=== PATIENT | female | born 1955 | race Caucasian/White ===

== ENCOUNTER 2016-06-11 09:38 | Inpatient (IN) | payer MEDICAID, OTHER ==
[2016-06-11] MEDS ORDERED: Sodium Chloride 0.9% 1,000 ML IV ONE ×2 (09:51→10:06)
[2016-06-11] MEDS ORDERED: HYDROmorphone 1 MG/ML Syringe IM ONE (09:53)
[2016-06-11] MEDS ORDERED: Sodium Chloride 0.9% 2.5 ML Syringe FLUSH PRN ×2 (10:06)
[2016-06-11] MEDS ORDERED: Sodium Chloride 0.9% 10 ML Syringe FLUSH PRN ×2 (10:06)
--- NOTE | 2016-06-11 10:12 | EDM.PDOC ---
ED HPI Trauma - General Chief Complaint: Lower Extremity Injury/Pain Stated Complaint: AMBULANCE Source: Reports: Patient, EMS History Limitations: Reports: No limitations - History of Present Illness INITIAL COMMENTS - FREE TEXT/NARRATIVE: HISTORY AND PHYSICAL: History of present illness: [60-year-old female with no prior bone or bleeding problems no anticoagulants now status post fall on right hip. Patient went out to smoke a cigarette and slipped on the ice she injured her right hip. Patient was unable to stand up or bear weight she had her cell phone so she called her people and EMS arrived and transported her to the hospital. She denies other complaints or injury. No headache neck pain. Denies spinal pain. Patient has not been drinking today and no drug use. Patient was outside for at least a half an hour waiting for EMS. Review of systems: As per history of present illness and below otherwise all systems reviewed and negative. Past medical history: As per history of present illness and as reviewed below otherwise noncontributory. Surgical history: As per history of present illness and as reviewed below otherwise noncontributory. Social history: No reported history of drug or alcohol abuse. Family history: As per history of present illness and as reviewed below otherwise noncontributory. Physical exam: HEENT: Atraumatic, normocephalic, pupils reactive, negative for conjunctival pallor or scleral icterus, mucous membranes moist, throat clear, neck supple, nontender, trachea midline. Normal painless range of motion of C-spine no midline tenderness. Lungs: Clear to auscultation, breath sounds equal bilaterally, chest nontender. Heart: S1S2, regular, negative for clicks, rubs, or JVD. Abdomen: Soft, nondistended, nontender. Negative for masses or hepatosplenomegaly. Negative for costovertebral tenderness. Pelvis: Stable nontender. Genitourinary: Deferred. Rectal: Deferred. Extremities: Extremities normal except right hip bony tenderness and swelling. Stable pelvis. Mild proximal thigh swelling with soft compartments. Normal popliteal pulse and DP/PT. Distal extremity atraumatic Nonfocal neurologic exam Diagnostics: [] Therapeutics: [] Impression: [] Plan: [] Definitive disposition and diagnosis as appropriate pending reevaluation and review of above. Allergies/ADRs: Allergies No Known Allergies Allergy (Verified 06/11/16 09:38) Home Medications: Ambulatory Orders . [No Known Home Meds] 02/22/14 [Confirmed 06/11/16] Past Medical History - Past Health History Medical/Surgical History: Denies Medical/Surgical History - Past Surgical History Musculoskeletal Surgical History: Reports: Other (see below) Other Musculoskeletal Surgeries/Procedures:: right elbow surgery Social & Family History - Tobacco Use Smoking Status *Q: Current Every Day Smoker Years of Tobacco use: 35 Packs/Tins Daily: 0.5 - Alcohol Use Days Per Week of Alcohol Use: 0 - Recreational Drug Use Recreational Drug Use: No Review of Systems - Review of Systems Review Of Systems: See Below (Per history of present illness) Trauma Exam - Physical Exam Exam: See Below (Per history of present illness) Course - Vital Signs Text/Narrative:: Signs and symptoms consistent with right hip fracture status post slip and fall prior to arrival. No evidence of clinical compartment syndrome. Neurovascularly intact distally. Analgesia administered with effective pain control. Exam otherwise atraumatic. No head injury or neck pain. Patient does not take anticoagulants. X-ray confirmed right intertrochanteric comminuted hip fracture interpreted by me report reviewed pelvis x-ray reflecting right hip fracture but no pelvic fracture chest x-ray interpreted by me and hyperinflation chronic changes no acute disease. Case discussed with Dr. Katelynn Singh orthopedist onsite case manager who is aware of history and findings and accepts patient for consultation and surgical treatment as needed. Case been discussed with Dr. Lopez hospitalist onsite case manager is aware of history and findings and will admit patient to his service. Last Recorded V/S: Last Vital Signs Temp 36.7 C 06/11/16 10:40 Pulse 70 06/11/16 10:40 Resp 16 06/11/16 10:40 BP 129/74 06/11/16 10:40 Pulse Ox 98 06/11/16 10:40 - Orders/Labs/Meds Orders: Active Orders 24 hr Category Date Time Status Admission Status [Patient Status] [ADT] Stat ADT 06/11/16 10:49 Ordered EKG Documentation Completion [RC] STAT Care 06/11/16 10:06 Active Peripheral IV Care [RC] . DIRECTED Care 06/11/16 10:06 Active COMPREHENSIVE METABOLIC PN,CMP [CHEM] Stat Lab 06/11/16 10:33 Received INR,PT,PROTHROMBIN TIME [COAG] Stat Lab 06/11/16 10:33 Received Sodium Chloride 0.9% [Saline Flush] Med 06/11/16 10:06 Active 10 ml FLUSH ASDIRECTED PRN Sodium Chloride 0.9% [Saline Flush] Med 06/11/16 10:06 Active 10 ml FLUSH ASDIRECTED PRN Sodium Chloride 0.9% [Saline Flush] Med 06/11/16 10:06 Active 2.5 ml FLUSH ASDIRECTED PRN Sodium Chloride 0.9% [Saline Flush] Med 06/11/16 10:06 Active 2.5 ml FLUSH ASDIRECTED PRN Peripheral IV Insertion Adult [OM.PC] Stat Oth 06/11/16 10:06 Ordered Medication Orders Sodium Chloride (Saline Flush) 10 ml FLUSH ASDIRECTED PRN PRN Reason: Keep Vein Open Last Admin: 06/11/16 10:21 Dose: 10 ml Sodium Chloride (Saline Flush) 2.5 ml FLUSH ASDIRECTED PRN PRN Reason: Keep Vein Open Last Admin: 06/11/16 10:21 Dose: 2.5 ml Sodium Chloride (Saline Flush) 10 ml FLUSH ASDIRECTED PRN PRN Reason: Keep Vein Open Last Admin: 06/11/16 10:21 Dose: 10 ml Sodium Chloride (Saline Flush) 2.5 ml FLUSH ASDIRECTED PRN PRN Reason: Keep Vein Open Last Admin: 06/11/16 10:21 Dose: 2.5 ml Labs: Laboratory Tests 06/11/16 06/11/16 Range/Units 10:33 10:33 WBC 13.30 H (4.0-11.0) K/uL RBC 4.29 L (4.30-5.90) M/uL Hgb 13.5 (12.0-16.0) g/dL Hct 41.4 (36.0-46.0) % MCV 96.5 (80.0-98.0) fL MCH 31.5 (27.0-32.0) pg MCHC 32.6 (31.0-37.0) g/dL RDW Std Deviation 45.4 (28.0-62.0) fl RDW Coeff of Amelia 13 (11.0-15.0) % Plt Count 236 (150-400) K/uL MPV 9.80 (7.40-12.00) fL Neut % (Auto) 87.9 H (48.0-80.0) % Lymph % (Auto) 9.5 L (16.0-40.0) % [place] % (Auto) 2.3 (0.0-15.0) % Eos % (Auto) 0.1 (0.0-7.0) % Baso % (Auto) 0.2 (0.0-1.5) % Neut # 11.7 H (1.4-5.7) K/uL Lymph # 1.3 (0.6-2.4) K/uL [place] # 0.3 (0.0-0.8) K/uL Eos # 0.0 (0.0-0.7) K/uL Baso # 0.0 (0.0-0.1) K/uL Nucleated RBC % 0.0 /100WBC Nucleated RBCs # 0 K/uL APTT 27.5 (18.6-31.3) SEC Meds: Medications Generic Name Dose Route Start Last Admin Trade Name Freq PRN Reason Stop Dose Admin Sodium Chloride 10 ml 06/11/16 10:06 06/11/16 10:21 Saline Flush FLUSH 10 ml ASDIRECTED PRN Administration Keep Vein Open Sodium Chloride 2.5 ml 06/11/16 10:06 06/11/16 10:21 Saline Flush FLUSH 2.5 ml ASDIRECTED PRN Administration Keep Vein Open Sodium Chloride 10 ml 06/11/16 10:06 06/11/16 10:21 Saline Flush FLUSH 10 ml ASDIRECTED PRN Administration Keep Vein Open Sodium Chloride 2.5 ml 06/11/16 10:06 06/11/16 10:21 Saline Flush FLUSH 2.5 ml ASDIRECTED PRN Administration Keep Vein Open Discontinued Medications Generic Name Dose Route Start Last Admin Trade Name Freq PRN Reason Stop Dose Admin Hydromorphone HCl 0.5 mg 06/11/16 09:53 06/11/16 10:20 Dilaudid IM 06/11/16 09:54 0.5 mg ONETIME ONE Administration Hydromorphone HCl 0.5 mg 06/11/16 11:13 Dilaudid IVPUSH 06/11/16 11:14 ONETIME ONE Sodium Chloride 1,000 mls @ 999 mls/hr 06/11/16 09:51 06/11/16 10:21 Normal Saline IV 06/11/16 10:51 999 mls/hr STAT ONE Administration Sodium Chloride 1,000 mls @ 999 mls/hr 06/11/16 10:06 Normal Saline IV 06/11/16 11:06 .Bolus ONE Departure - Departure Time of Disposition: 12:05 Disposition: Admitted As Inpatient 67 Condition: good, fair Clinical Impression: Intertrochanteric fracture, hip - My Orders Last 24 Hours: My Active Orders 06/11/16 10:06 EKG Documentation Completion [RC] STAT Peripheral IV Care [RC] . DIRECTED Sodium Chloride 0.9% [Saline Flush] 10 ml FLUSH ASDIRECTED PRN Sodium Chloride 0.9% [Saline Flush] 10 ml FLUSH ASDIRECTED PRN Sodium Chloride 0.9% [Saline Flush] 2.5 ml FLUSH ASDIRECTED PRN Sodium Chloride 0.9% [Saline Flush] 2.5 ml FLUSH ASDIRECTED PRN Peripheral IV Insertion Adult [OM.PC] Stat 06/11/16 10:33 COMPREHENSIVE METABOLIC PN,CMP [CHEM] Stat INR,PT,PROTHROMBIN TIME [COAG] Stat 06/11/16 10:49 Admission Status [Patient Status] [ADT] Stat - Assessment/Plan Last 24 Hours: My Active Orders 06/11/16 10:06 EKG Documentation Completion [RC] STAT Peripheral IV Care [RC] . DIRECTED Sodium Chloride 0.9% [Saline Flush] 10 ml FLUSH ASDIRECTED PRN Sodium Chloride 0.9% [Saline Flush] 10 ml FLUSH ASDIRECTED PRN Sodium Chloride 0.9% [Saline Flush] 2.5 ml FLUSH ASDIRECTED PRN Sodium Chloride 0.9% [Saline Flush] 2.5 ml FLUSH ASDIRECTED PRN Peripheral IV Insertion Adult [OM.PC] Stat 06/11/16 10:33 COMPREHENSIVE METABOLIC PN,CMP [CHEM] Stat INR,PT,PROTHROMBIN TIME [COAG] Stat 06/11/16 10:49 Admission Status [Patient Status] [ADT] Stat
--- NOTE | 2016-06-11 10:26 | CR ---
EXAMINATION: Right hip and pelvis HISTORY: Fall COMPARISON: None TECHNIQUE: AP pelvis and 2 views of the right hip FINDINGS: There is a comminuted angulated mildly displaced right intertrochanteric femur fracture. B one mineralization otherwise appears normal. The iliopectineal lines are intact. The SI joints are s ymmetric. The left hip appears preserved. IMPRESSION: Comminuted and angulated right intertrochanteric fracture.
--- NOTE | 2016-06-11 10:30 | CR ---
EXAMINATION: AP chest radiograph. HISTORY: Fall. FINDINGS: The trachea is midline. The cardiomediastinal silhouette is within normal limits. No pulmonary infil trates, effusions or pneumothorax. Osseous structures appear unremarkable. IMPRESSION: No acute cardiopulmonary process.
[2016-06-11] MEDS ORDERED: HYDROmorphone 2 MG/ML Syringe IVPUSH ONE (11:13)
[2016-06-11 11:16] LABS: CHLORIDE,CL 108 mmol/L (98-110); SODIUM,NA 141 mmol/L (136-146)
--- NOTE | 2016-06-11 11:19 | PCM.CONS ---
<Sharda Garrison - Last Filed: 06/11/16 11:28> H&P History of Present Illness - General Date of Service: 06/11/16 Admit Problem/Dx: Admission Diagnosis/Problem Admission Diagnosis/Problem Fracture of neck of femur, hip Source of Information: Patient History Limitations: Reports: No limitations - History of Present Illness Initial Comments - Free Text/Narative: Patient went out to smoke a cigarette this morning around 7:30 AM when she slipped on ice. She landed on her buttocks. She denies hitting her head or loss of consciousness. She immediately felt pain in her right hip. She was unable to get up. She had her phone on her and called her mother for help. EMS was called in [place]. Patient was brought to [place] for further care. Labs and images were obtained. Images revealed right hip fracture. She denies any other pain at this time. right hip Pain Score (Numeric/FACES): 6 - Related Data Allergies/Adverse Reactions: Allergies Allergy/AdvReac Type Severity Reaction Status Date / Time No Known Allergies Allergy Verified 06/11/16 09:38 Home Medications: Home Meds . [No Known Home Meds] 02/22/14 [History] Past Medical History - Past Health History Medical/Surgical History: Denies Medical/Surgical History - Past Surgical History Musculoskeletal Surgical History: Reports: Other (see below) Other Musculoskeletal Surgeries/Procedures:: right elbow surgery Social & Family History - Tobacco Use Smoking Status *Q: Current Every Day Smoker Years of Tobacco use: 35 Packs/Tins Daily: 0.5 - Alcohol Use Days Per Week of Alcohol Use: 0 - Recreational Drug Use Recreational Drug Use: No H&P Review of Systems - Review of Systems: Review Of Systems: See Below General: Reports: no symptoms HEENT: Reports: no symptoms Pulmonary: Reports: No Symptoms Cardiovascular: Reports: no symptoms Gastrointestinal: Reports: No symptoms Genitourinary: Reports: no symptoms Musculoskeletal: Reports: back pain Skin: Reports: no symptoms Psychiatric: Reports: no symptoms Neurological: Reports: No Symptoms Hematologic/Lymphatic: Reports: no symptoms Immunologic: Reports: no symptoms Exam - Exam Exam: See Below - Vital Signs Vital Signs: Last Vital Signs Temp 36.7 C 06/11/16 10:40 Pulse 70 06/11/16 10:40 Resp 16 06/11/16 10:40 BP 129/74 03/17/17 10:40 Pulse Ox 98 06/11/16 10:40 Weight: 55.792 kg - Exam General: alert, oriented HEENT: Conjunctiva clear, Hearing intact, Mucosa moist & pink, Nares patent, Normal nasal septum, Pupils equal, Pupils reactive Neck: supple, trachea midline Lungs: Clear to auscultation, Normal respiratory effort Cardiovascular: regular rate, regular rhythm Abdomen: normal bowel sounds, soft Extremities: normal pulses Skin: warm, dry, intact Neurological: cranial nerves intact Neuro Extensive - Mental Status: alert, oriented x3, normal mood/affect, normal cognition, memory intact Psychiatric: alert, normal affect, normal mood Physical Exam Comments:: Right lower extremity is external rotated and shortened compared to the LLE. Significant tenderness to palpation around the right hip and upper thigh. Significant effusion in right hip and upper thigh. Skin integrity intact. 2+ pulses in LE bilaterally. - Patient Data Lab Results last 24 hrs: Laboratory Results - last 24 hr 06/11/16 06/11/16 Range/Units 10:33 10:33 WBC 13.30 H (4.0-11.0) K/uL RBC 4.29 L (4.30-5.90) M/uL Hgb 13.5 (12.0-16.0) g/dL Hct 41.4 (36.0-46.0) % MCV 96.5 (80.0-98.0) fL MCH 31.5 (27.0-32.0) pg MCHC 32.6 (31.0-37.0) g/dL RDW Std Deviation 45.4 (28.0-62.0) fl RDW Coeff of Amelia 13 (11.0-15.0) % Plt Count 236 (150-400) K/uL MPV 9.80 (7.40-12.00) fL Neut % (Auto) 87.9 H (48.0-80.0) % Lymph % (Auto) 9.5 L (16.0-40.0) % [place] % (Auto) 2.3 (0.0-15.0) % Eos % (Auto) 0.1 (0.0-7.0) % Baso % (Auto) 0.2 (0.0-1.5) % Neut # 11.7 H (1.4-5.7) K/uL Lymph # 1.3 (0.6-2.4) K/uL [place] # 0.3 (0.0-0.8) K/uL Eos # 0.0 (0.0-0.7) K/uL Baso # 0.0 (0.0-0.1) K/uL Nucleated RBC % 0.0 /100WBC Nucleated RBCs # 0 K/uL APTT 27.5 (18.6-31.3) SEC Result Diagrams: 06/11/16 10:33 06/11/16 10:33 Consult PN Assessment/Plan Procedures: Procedures EMERGENCY DEPT VISIT (08/09/14) EMERGENCY DEPT VISIT (02/22/14) EMERGENCY DEPT VISIT (02/22/14) X-RAY EXAM OF HAND (08/09/14) X-RAY EXAM OF WRIST (08/09/14) Problem List Initiated/Reviewed/Updated: Yes Plan: 60 yro female s/p fall while smoking, now with a closed, comminuted right intertrochanteric femur fracture. Patient will need surgical intervention today. - keep NPO - IVF - PRN pain regimen - Type and cross - verify consent - admit Patient was seen and discussed with Dr. Staley. Sharda Garrison MD Surgery resident PGY 2 06/11/2016 11:33AM <Katelynn Staley R - Last Filed: 06/11/16 11:52> Exam - Vital Signs Vital Signs: Last Vital Signs Temp 98.0 F 06/11/16 10:40 Pulse 88 06/11/16 11:23 Resp 16 06/11/16 11:31 BP 126/76 06/11/16 11:23 Pulse Ox 96 06/11/16 11:31 - Patient Data Result Diagrams: 06/11/16 10:33 06/11/16 10:33 Consult PN Assessment/Plan Procedures: Procedures EMERGENCY DEPT VISIT (08/09/14) EMERGENCY DEPT VISIT (02/22/14) EMERGENCY DEPT VISIT (02/22/14) X-RAY EXAM OF HAND (08/09/14) X-RAY EXAM OF WRIST (08/09/14) (1) Intertrochanteric fracture of right femur SNOMED Code(s): 203119775 Code(s): S72.141A - DISPLACED INTERTROCHANTERIC FRACTURE OF RIGHT FEMUR, INIT Current Visit: Yes Qualifiers: Encounter type: initial encounter Fracture type: closed Qualified Code(s) : S72.141A - Displaced intertrochanteric fracture of right femur, initial encounter for closed fracture Problem List Initiated/Reviewed/Updated: Yes Plan: patient seen and examined. Agree with above note. Patient had fall earlier today. Denies other injuries. C/o R hip pain. XR show comminuted R IT hip fracture. Exam shows RLE to be shortened, externally rotated. Thigh swollen, compartments soft. Pain with gentle log rolling. No TTP in knee or low leg. AT/ EHL/gastroc 07/30. Sensation intact. DP 2+. At this time I am recommending that she undergo CR right hip with insertion of CM nail. Procedure and postoperative course discussed with patient and mother. Importance of smoking cessation emphasized. Risks of procedure discussed which include, but are not limited to, infection, n/v injury, nonunion, malunion, hardware irritation, blood clots, transfusion, need for further surgery, and anesthetic complications. Patient understands and agrees to proceed. Will be admitted by hospitalist for medical evaluation. Plan to proceed with surgery today, unless medical contraindication is found. haroon
--- NOTE | 2016-06-11 11:31 | PCM.PREANE ---
Preanesthetic Assessment - Anesthesia/Transfusion/Family Hx Anesthesia History: Prior Anesthesia Without Reaction Family History of Anesthesia Reaction: No - Review of Systems General: No Symptoms Pulmonary: No Symptoms Cardiovascular: No Symptoms Gastrointestinal: No symptoms Neurological: No Symptoms Other: Reports: None - Physical Assessment NPO Status Date: 06/10/16 NPO Status Time: 23:00 (coffee with cream at 0700 today) O2 Sat by Pulse Oximetry: 96 Respiratory Rate: 16 Vital Signs: Last Vital Signs Temp 36.7 C 06/11/16 10:40 Pulse 88 06/11/16 11:23 Resp 16 06/11/16 11:23 BP 126/76 06/11/16 11:23 Pulse Ox 96 06/11/16 11:23 Height: 1.63 m Weight: 55.792 kg ASA Class: 2 Mental Status: Alert & Oriented x3 Airway Class: Mallampati = 2 Dentition: Reports: Dentures ROM/Head Extension: Full Lungs: Clear to auscultation, Normal respiratory effort Cardiovascular: Regular Rate, Regular Rhythm - Lab Values: Laboratory Last Values WBC 13.30 K/uL (4.0-11.0) H 06/11/16 10:33 RBC 4.29 M/uL (4.30-5.90) L 06/11/16 10:33 Hgb 13.5 g/dL (12.0-16.0) 06/11/16 10:33 Hct 41.4 % (36.0-46.0) 06/11/16 10:33 MCV 96.5 fL (80.0-98.0) 06/11/16 10:33 MCH 31.5 pg (27.0-32.0) 06/11/16 10:33 MCHC 32.6 g/dL (31.0-37.0) 06/11/16 10:33 RDW Std Deviation 45.4 fl (28.0-62.0) 06/11/16 10:33 RDW Coeff of Amelia 13 % (11.0-15.0) 06/11/16 10:33 Plt Count 236 K/uL (150-400) 06/11/16 10:33 MPV 9.80 fL (7.40-12.00) 06/11/16 10:33 Neut % (Auto) 87.9 % (48.0-80.0) H 06/11/16 10:33 Lymph % (Auto) 9.5 % (16.0-40.0) L 06/11/16 10:33 [place] % (Auto) 2.3 % (0.0-15.0) 06/11/16 10:33 Eos % (Auto) 0.1 % (0.0-7.0) 06/11/16 10:33 Baso % (Auto) 0.2 % (0.0-1.5) 06/11/16 10:33 Neut # 11.7 K/uL (1.4-5.7) H 06/11/16 10:33 Lymph # 1.3 K/uL (0.6-2.4) 06/11/16 10:33 [place] # 0.3 K/uL (0.0-0.8) 06/11/16 10:33 Eos # 0.0 K/uL (0.0-0.7) 06/11/16 10:33 Baso # 0.0 K/uL (0.0-0.1) 06/11/16 10:33 Nucleated RBC % 0.0 /100WBC 06/11/16 10:33 Nucleated RBCs # 0 K/uL 06/11/16 10:33 INR 1.04 (0.86-1.11) 06/11/16 10:33 APTT 27.5 SEC (18.6-31.3) 06/11/16 10:33 Sodium 141 mmol/L (136-146) 06/11/16 10:33 Potassium 4.3 mmol/L (3.5-5.1) 06/11/16 10:33 Chloride 108 mmol/L (98-110) 06/11/16 10:33 Carbon Dioxide 26 mmol/L (21-31) 06/11/16 10:33 BUN 15 mg/dL (6.0-23.0) 06/11/16 10:33 Creatinine 0.8 mg/dL (0.6-1.5) 06/11/16 10:33 Est Cr Clr Drug Dosing 65.38 mL/min 06/11/16 10:33 Estimated GFR (MDRD) > 60.0 ml/min 06/11/16 10:33 Glucose 117 mg/dL (60-110) H 06/11/16 10:33 Calcium 8.8 mg/dL (8.8-10.8) 06/11/16 10:33 Total Bilirubin 0.4 mg/dL (0.1-1.5) 06/11/16 10:33 AST 18 IU/L (5-40) 06/11/16 10:33 ALT 13 IU/L (8-54) 06/11/16 10:33 Alkaline Phosphatase 62 (40-150) 06/11/16 10:33 Total Protein 6.3 g/dL (6.0-8.0) 06/11/16 10:33 Albumin 4.1 g/dL (3.5-5.0) 06/11/16 10:33 Globulin 2.2 g/dL (2.0-3.5) 06/11/16 10:33 Albumin/Globulin Ratio 1.9 (1.3-2.8) 06/11/16 10:33 - Allergies Allergies/Adverse Reactions: Allergies Allergy/AdvReac Type Severity Reaction Status Date / Time No Known Allergies Allergy Verified 06/11/16 09:38 - Blood Blood Available: No - Anesthesia Plan Pre-Op Medication Ordered: None - Acknowledgements Anesthesia Type Planned: Spinal Pt an Appropriate Candidate for the Planned Anesthesia: Yes Alternatives and Risks of Anesthesia Discussed w Pt/Guardian: Yes Pt/Guardian Understands and Agrees with Anesthesia Plan: Yes PreAnesthesia Questionnaire - Past Health History Medical/Surgical History: Denies Medical/Surgical History Cardiovascular History: Reports: None Respiratory History: Reports: Other (see below) (smoker) Musculoskeletal History: Reports: Fracture - Past Surgical History Musculoskeletal Surgical History: Reports: Other (see below) Other Musculoskeletal Surgeries/Procedures:: right elbow surgery - SUBSTANCE USE Smoking Status *Q: Current Every Day Smoker Tobacco Use Within Last Twelve Months: Cigarettes Days Per Week of Alcohol Use: 0 Recreational Drug Use History: No - HOME MEDS Home Medications: Home Meds . [No Known Home Meds] 02/22/14 [History] - CURRENT (IN HOUSE) MEDS Current Meds: Current Medications Sodium Chloride (Saline Flush) 10 ml FLUSH ASDIRECTED PRN PRN Reason: Keep Vein Open Last Admin: 06/11/16 10:21 Dose: 10 ml Sodium Chloride (Saline Flush) 2.5 ml FLUSH ASDIRECTED PRN PRN Reason: Keep Vein Open Last Admin: 06/11/16 10:21 Dose: 2.5 ml Sodium Chloride (Saline Flush) 10 ml FLUSH ASDIRECTED PRN PRN Reason: Keep Vein Open Last Admin: 06/11/16 10:21 Dose: 10 ml Sodium Chloride (Saline Flush) 2.5 ml FLUSH ASDIRECTED PRN PRN Reason: Keep Vein Open Last Admin: 06/11/16 10:21 Dose: 2.5 ml Discontinued Medications Hydromorphone HCl (Dilaudid) 0.5 mg IM ONETIME ONE Stop: 06/11/16 09:54 Last Admin: 06/11/16 10:20 Dose: 0.5 mg Hydromorphone HCl (Dilaudid) 0.5 mg IVPUSH ONETIME ONE Stop: 06/11/16 11:14 Last Admin: 06/11/16 11:20 Dose: 0.5 mg Sodium Chloride (Normal Saline) 1,000 mls @ 999 mls/hr IV STAT ONE Stop: 06/11/16 10:51 Last Admin: 06/11/16 10:21 Dose: 999 mls/hr Sodium Chloride (Normal Saline) 1,000 mls @ 999 mls/hr IV .Bolus ONE Stop: 06/11/16 11:06 Preanesthetic Assessment - PHYSICAL ASSESSMENT O2 Sat by Pulse Oximetry: 96 RR: 16 Vital Signs: Last Vital Signs Temp 36.7 C 06/11/16 10:40 Pulse 88 06/11/16 11:23 Resp 16 06/11/16 11:23 BP 126/76 06/11/16 11:23 Pulse Ox 96 06/11/16 11:23 Height: 1.63 m Weight: 55.792 kg - LAB Values: Laboratory Last Values WBC 13.30 K/uL (4.0-11.0) H 06/11/16 10:33 RBC 4.29 M/uL (4.30-5.90) L 06/11/16 10:33 Hgb 13.5 g/dL (12.0-16.0) 06/11/16 10:33 Hct 41.4 % (36.0-46.0) 06/11/16 10:33 MCV 96.5 fL (80.0-98.0) 06/11/16 10:33 MCH 31.5 pg (27.0-32.0) 06/11/16 10:33 MCHC 32.6 g/dL (31.0-37.0) 06/11/16 10:33 RDW Std Deviation 45.4 fl (28.0-62.0) 06/11/16 10:33 RDW Coeff of [place]elia 13 % (11.0-15.0) 06/11/16 10:33 Plt Count 236 K/uL (150-400) 06/11/16 10:33 MPV 9.80 fL (7.40-12.00) 06/11/16 10:33 Neut % (Auto) 87.9 % (48.0-80.0) H 06/11/16 10:33 Lymph % (Auto) 9.5 % (16.0-40.0) L 06/11/16 10:33 [place] % (Auto) 2.3 % (0.0-15.0) 06/11/16 10:33 Eos % (Auto) 0.1 % (0.0-7.0) 06/11/16 10:33 Baso % (Auto) 0.2 % (0.0-1.5) 06/11/16 10:33 Neut # 11.7 K/uL (1.4-5.7) H 06/11/16 10:33 Lymph # 1.3 K/uL (0.6-2.4) 06/11/16 10:33 [place] # 0.3 K/uL (0.0-0.8) 06/11/16 10:33 Eos # 0.0 K/uL (0.0-0.7) 06/11/16 10:33 Baso # 0.0 K/uL (0.0-0.1) 06/11/16 10:33 Nucleated RBC % 0.0 /100WBC 06/11/16 10:33 Nucleated RBCs # 0 K/uL 06/11/16 10:33 INR 1.04 (0.86-1.11) 06/11/16 10:33 APTT 27.5 SEC (18.6-31.3) 06/11/16 10:33 Sodium 141 mmol/L (136-146) 06/11/16 10:33 Potassium 4.3 mmol/L (3.5-5.1) 06/11/16 10:33 Chloride 108 mmol/L (98-110) 06/11/16 10:33 Carbon Dioxide 26 mmol/L (21-31) 06/11/16 10:33 BUN 15 mg/dL (6.0-23.0) 06/11/16 10:33 Creatinine 0.8 mg/dL (0.6-1.5) 06/11/16 10:33 Est Cr Clr Drug Dosing 65.38 mL/min 06/11/16 10:33 Estimated GFR (MDRD) > 60.0 ml/min 06/11/16 10:33 Glucose 117 mg/dL (60-110) H 06/11/16 10:33 Calcium 8.8 mg/dL (8.8-10.8) 06/11/16 10:33 Total Bilirubin 0.4 mg/dL (0.1-1.5) 06/11/16 10:33 AST 18 IU/L (5-40) 06/11/16 10:33 ALT 13 IU/L (8-54) 06/11/16 10:33 Alkaline Phosphatase 62 (40-150) 06/11/16 10:33 Total Protein 6.3 g/dL (6.0-8.0) 06/11/16 10:33 Albumin 4.1 g/dL (3.5-5.0) 06/11/16 10:33 Globulin 2.2 g/dL (2.0-3.5) 06/11/16 10:33 Albumin/Globulin Ratio 1.9 (1.3-2.8) 06/11/16 10:33 - ALLERGIES Allergies/Adverse Reactions: Allergies Allergy/AdvReac Type Severity Reaction Status Date / Time No Known Allergies Allergy Verified 06/11/16 09:38
[2016-06-11] MEDS ORDERED: Ondansetron 4 MG/2 ML SDV IV PRN (11:53)
[2016-06-11] MEDS: Lactated Ringers 1,000 ML IV SCH (12:16)
--- NOTE | 2016-06-11 12:40 | PCM.HP ---
H&P History of Present Illness - General Date of Service: 06/11/16 Admit Problem/Dx: Admission Diagnosis/Problem Admission Diagnosis/Problem Fracture of neck of femur, hip Source of Information: Patient History Limitations: Reports: No limitations - History of Present Illness Initial Comments - Free Text/Narative: This 60 year old female with pmh of 29 years of cigarette use presented to the ED today via EMS with complaints of R hip pain after a fall this morning. She reports she was walking outside to smoke, she slipped on ice landing on her butt , felt pain to R hip instantly and was unable to get up. She was able to call for help and EMS was called. She denies hitting her head or losing consciousness. She denies recent URI, no fevers, cough. No chest pain or palpitations and no SOB. She denies any abdominal pain, urinary symptoms or black or bloody stools. She has otherwise been in good health. She smokes approximately 1 ppd, denies alcohol use In the ED labwork was obtained, WBC slightly elevated 13,000, hgb 13.5, BMP WNL. EKG SR 70s, no ST segment changes. R hip xray revealed comminuted and angulated right intertrochanteric fracture. CXR negative for acute cardiopulmonary process. Dr. Staley, Orthopedics consulted in ED recommended admission. right hip Pain Score (Numeric/FACES): 8 - Related Data Allergies/Adverse Reactions: Allergies Allergy/AdvReac Type Severity Reaction Status Date / Time No Known Allergies Allergy Verified 06/11/16 09:38 Home Medications: Home Meds . [No Known Home Meds] 02/22/14 [History] Past Medical History - Past Health History Medical/Surgical History: Denies Medical/Surgical History Cardiovascular History: Reports: None. Denies: Afib, Blood clots/VTE/DVT, CAD, Heart Failure, Hypertension, [place] Respiratory History: Reports: Other (see below). Denies: COPD Other Respiratory History: smoker of 29 years Gastrointestinal History: Reports: None. Denies: GERD, GI bleed Musculoskeletal History: Reports: Fracture. Denies: Arthritis Neurological History: Denies: CVA, Migraines, TIA Endocrine/Metabolic History: Denies: Diabetes, type II, Hypothyroidism - Past Surgical History Musculoskeletal Surgical History: Reports: Other (see below) Other Musculoskeletal Surgeries/Procedures:: right elbow surgery Social & Family History - Family History Family Medical History: Noncontributory - Tobacco Use Smoking Status *Q: Current Every Day Smoker Years of Tobacco use: 35 Packs/Tins Daily: 0.5 Used Tobacco, but Quit: No Second Hand Smoke Exposure: Yes - Caffeine Use Caffeine Use: Reports: Coffee, Soda - Alcohol Use Days Per Week of Alcohol Use: 0 - Recreational Drug Use Recreational Drug Use: No H&P Review of Systems - Review of Systems: Review Of Systems: See Below General: Reports: no symptoms. Denies: fever, chills, malaise HEENT: Reports: no symptoms. Denies: ear pain, headaches, post nasal drip, sinus congestion, sore throat, visual changes Pulmonary: Reports: No Symptoms. Denies: Shortness of Breath, Wheezing, Cough Cardiovascular: Reports: no symptoms. Denies: chest pain, palpitations, edema Gastrointestinal: Reports: No symptoms. Denies: Abdominal pain, Black stool, Bloody stool, Diarrhea Genitourinary: Reports: no symptoms. Denies: dysuria, frequency, burning, urgency Musculoskeletal: Reports: leg pain (R hip after fall) Skin: Reports: no symptoms Psychiatric: Reports: no symptoms Neurological: Reports: No Symptoms Hematologic/Lymphatic: Reports: no symptoms Immunologic: Reports: no symptoms Exam - Exam Exam: See Below - Vital Signs Vital Signs: Last Vital Signs Temp 97.8 F 06/11/16 12:01 Pulse 77 06/11/16 12:01 Resp 18 06/11/16 12:01 BP 128/62 06/11/16 12:01 Pulse Ox 96 06/11/16 12:01 Weight: 57.5 kg - Exam Quality Assessment: DVT prophylaxis General: alert, oriented, cooperative HEENT: Conjunctiva clear, Hearing intact, Mucosa moist & pink, Nares patent, Posterior pharynx clear Neck: supple, trachea midline. No: JVD Lungs: Clear to auscultation, Normal respiratory effort Cardiovascular: regular rate, regular rhythm, normal S1, normal S2. No: systolic murmur Abdomen: normal bowel sounds, soft. No: organomegaly, rigidity, rebound, tenderness Extremities: normal pulses, other (R leg is externally rotated and shortened when compared to L, with noted swelling to R hip and upper thigh. Pul). No: calf tenderness, increased warmth Peripheral Pulses: 2+: posterior tibial (L), posterior tibial (R), dorsalis pedis (L), dorsalis pedis (R) Skin: warm, dry, intact Neuro Extensive - Mental Status: alert, oriented x3, normal mood/affect, normal cognition Neuro Extensive - Motor, Sensory, Reflexes: CN II-XII intact, normal reflexes Psychiatric: alert, normal affect, normal mood - Patient Data Result Diagrams: 06/11/16 10:33 06/11/16 10:33 EKG INTERPRETATION EKG Date: 06/11/16 Rhythm: NSR Rate (beats/min): 80 [place]: normal P-wave: present QRS: normal ST-T: normal QT: normal *Q Meaningful Use (ADM) - VTE *Q VTE Criteria *Q: - VTE Risk Assess *Q Each Risk Factor Represents 1 Point: Age 41 - 59 years Total Score 1 Point Risk Factors: 1 Each Risk Factor Represents 2 Points: None Total Score 2 Point Risk Factors: 0 Each Risk Factor Represents 3 Points: None Total Score 3 Point Risk Factors: 0 Each Risk Factor Represents 5 Points: Hip, Pelvis or Leg Fracture, Less than 1 month Total Score 5 Point Risk Factors: 5 Venous Thromboembolism Risk Factor Score *Q: 6 - Stroke *Q Stroke Criteria *Q: - AMI *Q AMI Criteria *Q: - Problem List (1) Intertrochanteric fracture of right femur SNOMED Code(s): 133632813 ICD Code: S72.141A - DISPLACED INTERTROCHANTERIC FRACTURE OF RIGHT FEMUR, INIT Status: Acute Current Visit: Yes Qualifiers: Encounter type: initial encounter Fracture type: closed Qualified Code(s) : S72.141A - Displaced intertrochanteric fracture of right femur, initial encounter for closed fracture (2) Smoker SNOMED Code(s): 06181701 ICD Code: F17.200 - NICOTINE DEPENDENCE, UNSPECIFIED, UNCOMPLICATED Status : Chronic Current Visit: Yes Problem List Initiated/Reviewed/Updated: Yes Orders Last 24hrs: Active Orders 24 hr Category Date Time Status Antiembolic Devices [RC] PER UNIT ROUTINE Care 06/11/16 11:55 Active Neurovascular Check [RC] Q4HR Care 06/11/16 11:55 Active Vital Signs [RC] Q4H Care 06/11/16 11:55 Active HYDROmorphone [Dilaudid] Med 06/11/16 11:53 Active 0.5 - 1 mg IVPUSH Q3H PRN Lactated Ringers [Ringers, Lactated] 1,000 ml Med 06/11/16 12:00 Active IV ASDIRECTED Ondansetron [Zofran] Med 06/11/16 11:53 Active 4 mg IV Q8HR PRN ceFAZolin [Ancef] 1 gm Med 06/11/16 13:00 Active Premix Bag 1 bag IV Q8H Antiembolic Hose [OM.PC] Routine Oth 06/11/16 11:55 Ordered Obtain Home Medication List [OM.PC] Routine Oth 06/11/16 11:55 Ordered Sequential Compression Device [OM.PC] Routine Oth 06/11/16 11:55 Ordered Medication Orders Hydromorphone HCl (Dilaudid) 0.5 - 1 mg IVPUSH Q3H PRN PRN Reason: Pain Lactated Ringer's (Ringers, Lactated) 1,000 mls @ 125 mls/hr IV ASDIRECTED ROGER Last Admin: 06/11/16 12:16 Dose: 125 mls/hr Cefazolin Sodium/Dextrose 1 gm (/ Premix) 50 mls @ 100 mls/hr IV Q8H ONE Stop: 06/11/16 13:29 Ondansetron HCl (Zofran) 4 mg IV Q8HR PRN PRN Reason: NAUSEA/VOMITING Sodium Chloride (Saline Flush) 10 ml FLUSH ASDIRECTED PRN PRN Reason: Keep Vein Open Last Admin: 06/11/16 10:21 Dose: 10 ml Sodium Chloride (Saline Flush) 2.5 ml FLUSH ASDIRECTED PRN PRN Reason: Keep Vein Open Last Admin: 06/11/16 10:21 Dose: 2.5 ml Sodium Chloride (Saline Flush) 10 ml FLUSH ASDIRECTED PRN PRN Reason: Keep Vein Open Last Admin: 06/11/16 10:21 Dose: 10 ml Sodium Chloride (Saline Flush) 2.5 ml FLUSH ASDIRECTED PRN PRN Reason: Keep Vein Open Last Admin: 06/11/16 10:21 Dose: 2.5 ml Assessment/Plan Comment:: This 60 year old female admitted with R hip fracture 1. R hip fracture: Dr Staley consulted, plan to go to OR this afternoon. Will start VTE prophylaxis when deemed safe by Ortho. Encourage IS to reduce pulmonary complications post-operatively. 2. Smoking: Smoking cessation encouraged. Encourage IS VTE: SCDs for now, will start when deemed appropriate by Ortho post-operatively. Dispo: 2-4 days Patient requested DNR status. Informed her during and 24 hours after surgery she will be placed as FULL CODE. She verbalizes understanding and agrees with this.
[2016-06-11] MEDS ORDERED: ceFAZolin 1 GM in Premix Bag 1 BAG IV ONE ×2 (13:00→16:00)
[2016-06-11] MEDS: HYDROmorphone 2 MG/ML Syringe IVPUSH PRN (13:32)
[2016-06-11] MEDS ORDERED: Propofol 200 MG/20 ML SDV ONE (13:35)
[2016-06-11] MEDS ORDERED: fentaNYL 100 MCG/2 ML SDV ONE ×2 (13:36→13:37)
[2016-06-11] MEDS ORDERED: Midazolam 1 MG/ML 2 ML SDV ONE (13:36)
[2016-06-11] MEDS ORDERED: Phenylephrine/Normal Saline 100 MCG/ML 10 ML Syringe ONE ×2 (15:00→15:14)
[2016-06-11] MEDS ORDERED: Phenylephrine 1% 10 MG/ML SDV ONE (15:14)
--- NOTE | 2016-06-11 16:42 | PCM.OPNOTE ---
- General Post-Op/Procedure Note Date of Surgery/Procedure: 06/11/16 Operative Procedure(s): closed reduction of right hip with insertion of cephalomedullary nail Anesthesia Technique: MAC, Spinal Primary Surgeon: Katelynn Staley Art Editor: Sharda Garrison Art Editor: Ruby Quach EBL in mLs: 100 Condition: Good
[2016-06-11] MEDS ORDERED: diphenhydrAMINE 25 MG Cap PO PRN (16:54)
[2016-06-11] MEDS ORDERED: Acetaminophen 500 MG Tab PO SCH (17:00)
--- NOTE | 2016-06-11 17:27 | PCM.POSTAN ---
POST ANESTHESIA ASSESSMENT - MENTAL STATUS Mental Status: alert, oriented - RESPIRATORY Respiratory Status: respiratory rate WNL, airway patent, O2 saturation stable, supplemental oxygen (o2 via nasal canula) - CARDIOVASCULAR CV Status: pulse rate WNL, blood pressure stable - GASTROINTESTINAL GI Status: no symptoms - PAIN Pain Score: 0 - POST OP HYDRATION Hydration Status: adequate & stable - OBSERVATIONS Free Text/Narrative:: can wiggle toes
[2016-06-11] MEDS: Acetaminophen/HYDROcodone 325-10 MG Tab PO PRN (20:48)
[2016-06-11] MEDS: ceFAZolin 1 GM in Premix Bag 1 BAG IV SCH (23:18)
[2016-06-12] MEDS: Lactated Ringers 1,000 ML IV SCH ×3 (01:08→17:52)
[2016-06-12] MEDS: Acetaminophen/HYDROcodone 325-10 MG Tab PO PRN ×4 (05:19→23:24)
[2016-06-12] MEDS: ceFAZolin 1 GM in Premix Bag 1 BAG IV SCH (06:02)
[2016-06-12 06:43] LABS: CHLORIDE,CL 107 mmol/L (98-110); SODIUM,NA 137 mmol/L (136-146)
[2016-06-12] MEDS: HYDROmorphone 2 MG/ML Syringe IVPUSH PRN (07:40)
--- NOTE | 2016-06-12 08:00 | PCM.SURGPN ---
- General Info Date of Service: 06/11/16 Date of Surgery/Procedure: 06/12/16 POD#: 1 Functional Status: Reports: pain controlled, tolerating diet, ambulating, urinating - Review of Systems General: Reports: No Symptoms Pulmonary: Reports: no symptoms Cardiovascular: Reports: No Symptoms Gastrointestinal: Reports: No symptoms Genitourinary: Reports: no symptoms Musculoskeletal: Reports: back pain, joint pain Neurological: Reports: No Symptoms Psychiatric: Reports: no symptoms - Patient Data Vitals - most recent: Last Vital Signs Temp 37.5 C 06/12/16 04:00 Pulse 92 06/12/16 04:00 Resp 18 06/12/16 04:00 BP 108/55 L 06/12/16 04:00 Pulse Ox 94 L 06/12/16 04:00 Weight - most recent: 57.5 kg I&O - last 24 hours: Intake & Output 06/11/16 06/12/16 06/12/16 22:59 06:59 14:59 Intake Total 1600 1200 Output Total 890 600 Balance 710 600 Lab Results last 24 hrs: Laboratory Results - last 24 hr 06/12/16 06/12/16 Range/Units 05:35 05:35 WBC 7.33 (4.0-11.0) K/uL RBC 3.09 L (4.30-5.90) M/uL Hgb 9.8 L (12.0-16.0) g/dL Hct 30.0 L (36.0-46.0) % MCV 97.1 (80.0-98.0) fL MCH 31.7 (27.0-32.0) pg MCHC 32.7 (31.0-37.0) g/dL RDW Std Deviation 45.6 (28.0-62.0) fl RDW Coeff of [place]elia 13 (11.0-15.0) % Plt Count 184 (150-400) K/uL MPV 9.80 (7.40-12.00) fL Neut % (Auto) 65.3 (48.0-80.0) % Lymph % (Auto) 25.6 (16.0-40.0) % [place] % (Auto) 8.6 (0.0-15.0) % Eos % (Auto) 0.4 (0.0-7.0) % Baso % (Auto) 0.1 (0.0-1.5) % Neut # 4.8 (1.4-5.7) K/uL Lymph # 1.9 (0.6-2.4) K/uL [place] # 0.6 (0.0-0.8) K/uL Eos # 0.0 (0.0-0.7) K/uL Baso # 0.0 (0.0-0.1) K/uL Nucleated RBC % 0.0 /100WBC Nucleated RBCs # 0 K/uL Sodium 137 (136-146) mmol/L Potassium 4.2 (3.5-5.1) mmol/L Chloride 107 (98-110) mmol/L Carbon Dioxide 25 (21-31) mmol/L BUN 9 (6.0-23.0) mg/dL Creatinine 0.7 (0.6-1.5) mg/dL Est Cr Clr Drug Dosing 75.27 mL/min Estimated GFR (MDRD) > 60.0 ml/min Glucose 91 (60-110) mg/dL Calcium 8.0 L (8.8-10.8) mg/dL Med Orders - Current: Current Medications Acetaminophen/Hydrocodone Bitart ([place] 325-10 Mg) 1 - 2 tab PO Q4H PRN PRN Reason: Pain Last Admin: 06/12/16 05:19 Dose: 1 tab Diphenhydramine HCl (Benadryl) 25 - 50 mg PO Q6H PRN PRN Reason: Itching Hydromorphone HCl (Dilaudid) 0.5 - 1 mg IVPUSH Q3H PRN PRN Reason: Pain Last Admin: 06/12/16 07:40 Dose: 1 mg Lactated Ringer's (Ringers, Lactated) 1,000 mls @ 125 mls/hr IV ASDIRECTED ROGER Last Admin: 06/12/16 01:08 Dose: 125 mls/hr Ondansetron HCl (Zofran) 4 mg IV Q8HR PRN PRN Reason: NAUSEA/VOMITING Rivaroxaban (Xarelto) 10 mg PO DAILY ROGER Sodium Chloride (Saline Flush) 2.5 ml FLUSH ASDIRECTED PRN PRN Reason: Keep Vein Open Last Admin: 06/11/16 10:21 Dose: 2.5 ml Discontinued Medications Acetaminophen (Tylenol Extra Strength) 1,000 mg PO Q6H [facility] Fentanyl (Sublimaze) Confirm Administered Dose 100 mcg .ROUTE .STK-MED ONE Stop: 06/11/16 13:37 Fentanyl (Sublimaze) Confirm Administered Dose 100 mcg .ROUTE .STK-MED ONE Stop: 06/11/16 13:38 Hydromorphone HCl (Dilaudid) 0.5 mg IM ONETIME ONE Stop: 06/11/16 09:54 Last Admin: 06/11/16 10:20 Dose: 0.5 mg Hydromorphone HCl (Dilaudid) 0.5 mg IVPUSH ONETIME ONE Stop: 06/11/16 11:14 Last Admin: 06/11/16 11:20 Dose: 0.5 mg Sodium Chloride (Normal Saline) 1,000 mls @ 999 mls/hr IV STAT ONE Stop: 06/11/16 10:51 Last Admin: 06/11/16 10:21 Dose: 999 mls/hr Sodium Chloride (Normal Saline) 1,000 mls @ 999 mls/hr IV .Bolus ONE Stop: 06/11/16 11:06 Last Admin: 06/11/16 11:12 Dose: 999 mls/hr Cefazolin Sodium/Dextrose 1 gm (/ Premix) 50 mls @ 100 mls/hr IV Q8H ONE Stop: 06/11/16 13:29 Last Admin: 06/11/16 13:35 Dose: Not Given Cefazolin Sodium/Dextrose 1 gm (/ Premix) 50 mls @ 100 mls/hr IV ONETIME ONE Stop: 06/11/16 16:29 Last Admin: 06/11/16 16:33 Dose: Not Given Cefazolin Sodium/Dextrose (Ancef) Confirm Administered Dose 50 mls @ as directed .ROUTE .STK-MED ONE Stop: 06/11/16 15:09 Cefazolin Sodium/Dextrose 1 gm (/ Premix) 50 mls @ 100 mls/hr IV Q8H ROGER Stop: 06/12/16 07:29 Last Admin: 06/12/16 06:02 Dose: 100 mls/hr Midazolam HCl (Versed 1 Mg/Ml) Confirm Administered Dose 2 mg .ROUTE .STK-MED ONE Stop: 06/11/16 13:37 Phenylephrine HCl (Phenylephrine In Ns 100 Mcg/Ml) Confirm Administered Dose 1 mg .ROUTE .STK-MED ONE Stop: 06/11/16 15:01 Phenylephrine HCl (Phenylephrine In Ns 100 Mcg/Ml) Confirm Administered Dose 1 mg .ROUTE .STK-MED ONE Stop: 06/11/16 15:15 Phenylephrine HCl (Frankie-Synephrine) Confirm Administered Dose 10 mg .ROUTE .STK- MED ONE Stop: 06/11/16 15:15 Propofol (Diprivan 20 Ml) Confirm Administered Dose 800 mg .ROUTE .STK-MED ONE Stop: 06/11/16 13:36 Sodium Chloride (Saline Flush) 10 ml FLUSH ASDIRECTED PRN PRN Reason: Keep Vein Open Last Admin: 06/11/16 10:21 Dose: 10 ml Sodium Chloride (Saline Flush) 2.5 ml FLUSH ASDIRECTED PRN PRN Reason: Keep Vein Open Last Admin: 06/11/16 10:21 Dose: 2.5 ml Sodium Chloride (Saline Flush) 10 ml FLUSH ASDIRECTED PRN PRN Reason: Keep Vein Open Last Admin: 06/11/16 10:21 Dose: 10 ml - Exam Wound/Incisions: dressing dry and intact General: alert, oriented HEENT: Pupils equal, Pupils reactive Lungs: Normal respiratory effort Cardiovascular: Regular Rate Neurological: no new focal deficit Psy/Mental Status: alert, normal affect, normal mood Physical Findings Comment:: RLE gastroc, EHL and anterior tibialis strength 5/5. Full ROM of right knee. Sensation intact distally. - Problem List Review Problem List Initiated/Reviewed/Updated: Yes - My Orders Last 24 Hours: Active Orders 24 hr Category Date Time Status Activity as Tolerated [RC] .Routine Care 06/11/16 16:50 Active Antiembolic Devices [RC] PER UNIT ROUTINE Care 06/11/16 11:55 Active Intake and Output [RC] ASDIRECTED Care 06/11/16 16:50 Active Neurovascular Check [RC] Q4HR Care 06/11/16 11:55 Active Notify Provider Consults [RC] ASDIRECTED Care 06/11/16 12:58 Active Notify Provider Vital Signs [RC] ASDIRECTED Care 06/11/16 16:50 Active Oxygen Therapy [RC] PRN Care 06/11/16 16:44 Inactive RT Incentive Spirometry [RC] ASDIRECTED Care 06/11/16 16:43 Active Up With Assistance [RC] ASDIRECTED Care 06/11/16 16:43 Active Vital Signs [RC] Q4H Care 06/11/16 16:44 Active Consult to Physician [CONS] Routine Cons 06/11/16 12:57 Active PT Evaluation and Treatment [CONS] Routine Cons 06/11/16 16:43 Active Regular Diet [DIET] Diet 06/11/16 Dinner Active Fluoro Up To 1Hr [CR] Routine Exams 06/11/16 19:13 Taken BMP [BASIC METABOLIC PANEL,BMP] [CHEM] DAILY Lab 06/13/16 05:00 Ordered CBC WITH AUTO DIFF [HEME] DAILY Lab 06/13/16 05:00 Ordered Acetaminophen/HYDROcodone [[place] 325-10 MG] Med 06/11/16 16:50 Active 1 - 2 tab PO Q4H PRN HYDROmorphone [Dilaudid] Med 06/11/16 11:53 Active 0.5 - 1 mg IVPUSH Q3H PRN Lactated Ringers [Ringers, Lactated] 1,000 ml Med 06/11/16 12:00 Active IV ASDIRECTED Ondansetron [Zofran] Med 06/11/16 11:53 Active 4 mg IV Q8HR PRN Rivaroxaban [Xarelto] Med 06/12/16 09:00 Active 10 mg PO DAILY diphenhydrAMINE [Benadryl] Med 06/11/16 16:54 Active 25 - 50 mg PO Q6H PRN Antiembolic Hose [OM.PC] Routine Oth 06/11/16 11:55 Ordered Ice Therapy [OM.PC] Routine Oth 06/12/16 07:54 Ordered Obtain Home Medication List [OM.PC] Routine Oth 06/11/16 11:55 Ordered Sequential Compression Device [OM.PC] Routine Oth 06/11/16 11:55 Ordered Resuscitation Status Routine Resus Stat 06/11/16 12:57 Ordered Medication Orders Acetaminophen/Hydrocodone Bitart ([place] 325-10 Mg) 1 - 2 tab PO Q4H PRN PRN Reason: Pain Last Admin: 06/12/16 05:19 Dose: 1 tab Admin: 06/11/16 20:48 Dose: 1 tab Diphenhydramine HCl (Benadryl) 25 - 50 mg PO Q6H PRN PRN Reason: Itching Hydromorphone HCl (Dilaudid) 0.5 - 1 mg IVPUSH Q3H PRN PRN Reason: Pain Last Admin: 06/12/16 07:40 Dose: 1 mg Admin: 06/11/16 13:32 Dose: 1 mg Lactated Ringer's (Ringers, Lactated) 1,000 mls @ 125 mls/hr IV ASDIRECTED ROGER Last Admin: 06/12/16 01:08 Dose: 125 mls/hr Infusion: 06/11/16 20:16 Dose: 125 mls/hr Admin: 06/11/16 12:16 Dose: 125 mls/hr Ondansetron HCl (Zofran) 4 mg IV Q8HR PRN PRN Reason: NAUSEA/VOMITING Rivaroxaban (Xarelto) 10 mg PO DAILY ROGER Sodium Chloride (Saline Flush) 2.5 ml FLUSH ASDIRECTED PRN PRN Reason: Keep Vein Open Last Admin: 06/11/16 10:21 Dose: 2.5 ml - Assessment Assessment (Free Text/Narrative):: Patient sitting up in bed with nurses this AM Does report some dizziness upon sitting Pain well controlled overnight VSS Hgb 9.8 UO 1490 mL - Plan Plan (Free Text/Narrative):: Continue pain management Continue PT Encourage PO fluid intake Start Xarelto 10mg PO daily for DVT prophylaxis
[2016-06-12] MEDS: Rivaroxaban 10 MG Tab PO SCH (08:02)
--- NOTE | 2016-06-12 08:02 | PCM.SN ---
- Free Text/Narrative Note: Pt seen and examined. Agree with ROWAN Quach note. Patient sitting at edge of bed. States she feels somewhat dizzy. This is her first time sitting up since surgery. Pain well controlled overnight. No other complaints. Dressing intact. No calf TTP. NVI. Will plan to mobilize today with PT--WBAT RLE. STart Xarelto for DVT prophylaxis. Continue pain management. Will continue to follow.
[2016-06-12] MEDS ORDERED: Rivaroxaban 10 MG Tab PO SCH (09:00)
--- NOTE | 2016-06-12 12:33 | PCM.PN ---
- Review of Systems Systems Review Comment:: reports leg pain - Patient Data Vitals - most recent: Last Vital Signs Temp 37.0 C 06/12/16 08:00 Pulse 84 06/12/16 08:00 Resp 12 06/12/16 08:00 BP 104/55 L 06/12/16 08:00 Pulse Ox 98 06/12/16 08:00 Weight - most recent: 57.5 kg I&O - last 24 hours: Intake & Output 06/11/16 06/12/16 06/12/16 22:59 06:59 14:59 Intake Total 1600 1200 Output Total 890 600 Balance 710 600 Lab Results last 24 hrs: Laboratory Results - last 24 hr 06/12/16 06/12/16 Range/Units 05:35 05:35 WBC 7.33 (4.0-11.0) K/uL RBC 3.09 L (4.30-5.90) M/uL Hgb 9.8 L (12.0-16.0) g/dL Hct 30.0 L (36.0-46.0) % MCV 97.1 (80.0-98.0) fL MCH 31.7 (27.0-32.0) pg MCHC 32.7 (31.0-37.0) g/dL RDW Std Deviation 45.6 (28.0-62.0) fl RDW Coeff of [place] 13 (11.0-15.0) % Plt Count 184 (150-400) K/uL MPV 9.80 (7.40-12.00) fL Neut % (Auto) 65.3 (48.0-80.0) % Lymph % (Auto) 25.6 (16.0-40.0) % [place] % (Auto) 8.6 (0.0-15.0) % Eos % (Auto) 0.4 (0.0-7.0) % Baso % (Auto) 0.1 (0.0-1.5) % Neut # 4.8 (1.4-5.7) K/uL Lymph # 1.9 (0.6-2.4) K/uL [place] # 0.6 (0.0-0.8) K/uL Eos # 0.0 (0.0-0.7) K/uL Baso # 0.0 (0.0-0.1) K/uL Nucleated RBC % 0.0 /100WBC Nucleated RBCs # 0 K/uL Sodium 137 (136-146) mmol/L Potassium 4.2 (3.5-5.1) mmol/L Chloride 107 (98-110) mmol/L Carbon Dioxide 25 (21-31) mmol/L BUN 9 (6.0-23.0) mg/dL Creatinine 0.7 (0.6-1.5) mg/dL Est Cr Clr Drug Dosing 75.27 mL/min Estimated GFR (MDRD) > 60.0 ml/min Glucose 91 (60-110) mg/dL Calcium 8.0 L (8.8-10.8) mg/dL Med Orders - Current: Current Medications Acetaminophen/Hydrocodone Bitart ([place] 325-10 Mg) 1 - 2 tab PO Q4H PRN PRN Reason: Pain Last Admin: 06/12/16 10:57 Dose: 2 tab Diphenhydramine HCl (Benadryl) 25 - 50 mg PO Q6H PRN PRN Reason: Itching Hydromorphone HCl (Dilaudid) 0.5 - 1 mg IVPUSH Q3H PRN PRN Reason: Pain Last Admin: 06/12/16 07:40 Dose: 1 mg Lactated Ringer's (Ringers, Lactated) 1,000 mls @ 125 mls/hr IV ASDIRECTED [facility] Last Admin: 06/12/16 09:48 Dose: 125 mls/hr Ondansetron HCl (Zofran) 4 mg IV Q8HR PRN PRN Reason: NAUSEA/VOMITING Last Admin: 06/12/16 08:16 Dose: 4 mg Rivaroxaban (Xarelto) 10 mg PO DAILY [facility] Last Admin: 06/12/16 08:02 Dose: 10 mg Sodium Chloride (Saline Flush) 2.5 ml FLUSH ASDIRECTED PRN PRN Reason: Keep Vein Open Last Admin: 06/11/16 10:21 Dose: 2.5 ml Discontinued Medications Acetaminophen (Tylenol Extra Strength) 1,000 mg PO Q6H [facility] Fentanyl (Sublimaze) Confirm Administered Dose 100 mcg .ROUTE .STK-MED ONE Stop: 06/11/16 13:37 Fentanyl (Sublimaze) Confirm Administered Dose 100 mcg .ROUTE .STK-MED ONE Stop: 06/11/16 13:38 Hydromorphone HCl (Dilaudid) 0.5 mg IM ONETIME ONE Stop: 06/11/16 09:54 Last Admin: 06/11/16 10:20 Dose: 0.5 mg Hydromorphone HCl (Dilaudid) 0.5 mg IVPUSH ONETIME ONE Stop: 06/11/16 11:14 Last Admin: 06/11/16 11:20 Dose: 0.5 mg Sodium Chloride (Normal Saline) 1,000 mls @ 999 mls/hr IV STAT ONE Stop: 06/11/16 10:51 Last Admin: 06/11/16 10:21 Dose: 999 mls/hr Sodium Chloride (Normal Saline) 1,000 mls @ 999 mls/hr IV .Bolus ONE Stop: 06/11/16 11:06 Last Admin: 06/11/16 11:12 Dose: 999 mls/hr Cefazolin Sodium/Dextrose 1 gm (/ Premix) 50 mls @ 100 mls/hr IV Q8H ONE Stop: 06/11/16 13:29 Last Admin: 06/11/16 13:35 Dose: Not Given Cefazolin Sodium/Dextrose 1 gm (/ Premix) 50 mls @ 100 mls/hr IV ONETIME ONE Stop: 06/11/16 16:29 Last Admin: 06/11/16 16:33 Dose: Not Given Cefazolin Sodium/Dextrose (Ancef) Confirm Administered Dose 50 mls @ as directed .ROUTE .STK-MED ONE Stop: 06/11/16 15:09 Cefazolin Sodium/Dextrose 1 gm (/ Premix) 50 mls @ 100 mls/hr IV Q8H [facility]OGER Stop: 06/12/16 07:29 Last Admin: 06/12/16 06:02 Dose: 100 mls/hr Midazolam HCl (Versed 1 Mg/Ml) Confirm Administered Dose 2 mg .ROUTE .STK-MED ONE Stop: 06/11/16 13:37 Phenylephrine HCl (Phenylephrine In Ns 100 Mcg/Ml) Confirm Administered Dose 1 mg .ROUTE .STK-MED ONE Stop: 06/11/16 15:01 Phenylephrine HCl (Phenylephrine In Ns 100 Mcg/Ml) Confirm Administered Dose 1 mg .ROUTE .STK-MED ONE Stop: 03/17/17 15:15 Phenylephrine HCl (Frankie-Synephrine) Confirm Administered Dose 10 mg .ROUTE .STK- MED ONE Stop: 06/11/16 15:15 Propofol (Diprivan 20 Ml) Confirm Administered Dose 800 mg .ROUTE .STK-MED ONE Stop: 06/11/16 13:36 Rivaroxaban (Xarelto) 10 mg PO DAILY [facility]OGER Sodium Chloride (Saline Flush) 10 ml FLUSH ASDIRECTED PRN PRN Reason: Keep Vein Open Last Admin: 06/11/16 10:21 Dose: 10 ml Sodium Chloride (Saline Flush) 2.5 ml FLUSH ASDIRECTED PRN PRN Reason: Keep Vein Open Last Admin: 06/11/16 10:21 Dose: 2.5 ml Sodium Chloride (Saline Flush) 10 ml FLUSH ASDIRECTED PRN PRN Reason: Keep Vein Open Last Admin: 06/11/16 10:21 Dose: 10 ml - Exam General: alert, oriented Lungs: Clear to auscultation, Normal respiratory effort Cardiovascular: Regular Rate, Regular Rhythm Abdomen: bowel sounds present, soft, no tenderness, no distension Extremities: no edema - Problem List Review Problem List Initiated/Reviewed/Updated: Yes - Plan Plan:: This 60 year old female admitted with R hip fracture R hip fracture: Dr Staley consulted, s/p ORIF yesterday, PT consulted VTE: Xarelto Dispo: 2-4 days Patient requested DNR status. Informed her during and 24 hours after surgery she will be placed as FULL CODE. She verbalizes understanding and agrees with this.
--- NOTE | 2016-06-12 13:24 | PCM48HPAN ---
Post Anesthesia Note - EVALUATION WITHIN 48HRS OF ANESTHETIC Vital Signs in Normal Range: Yes Patient Participated in Evaluation: Yes Respiratory Function Stable: Yes Airway Patent: Yes Cardiovascular Function Stable: Yes Hydration Status Stable: Yes Pain Control Satisfactory: Yes Nausea and Vomiting Control Satisfactory: Yes Mental Status Recovered: Yes
[2016-06-13] MEDS: Lactated Ringers 1,000 ML IV SCH ×3 (01:50→23:55)
[2016-06-13] MEDS: Acetaminophen/HYDROcodone 325-10 MG Tab PO PRN (06:55)
[2016-06-13 07:27] LABS: CHLORIDE,CL 106 mmol/L (98-110); SODIUM,NA 139 mmol/L (136-146)
[2016-06-13] MEDS ORDERED: Ketorolac 30 MG/ML SDV IVPUSH PRN (09:55)
[2016-06-13] MEDS: Rivaroxaban 10 MG Tab PO SCH (09:58)
[2016-06-13] MEDS: HYDROmorphone 2 MG/ML Syringe IVPUSH PRN (09:58)
--- NOTE | 2016-06-13 10:03 | PCM.SURGPN ---
- General Info Date of Service: 06/13/16 POD#: 2 - Review of Systems General: Reports: No Symptoms HEENT: Reports: no symptoms Pulmonary: Reports: no symptoms Cardiovascular: Reports: No Symptoms Gastrointestinal: Reports: No symptoms Genitourinary: Reports: no symptoms Systems Review Comment:: Patient c/o pain in hip. Received 2 [place] 10 earlier today which caused her to have some confusion. Was up with PT yesterday, but did minimal ambulation. Hgb 8.2 today with mild hypotension and dizziness when sitting up. 2U PRBC ordered. No other complaints. - Patient Data Vitals - most recent: Last Vital Signs Temp 98.9 F 06/13/16 09:48 Pulse 105 H 06/13/16 09:48 Resp 16 06/13/16 09:48 BP 120/58 L 06/13/16 09:48 Pulse Ox 92 L 06/13/16 08:00 Weight - most recent: 57.5 kg I&O - last 24 hours: Intake & Output 06/12/16 06/13/16 06/13/16 22:59 06:59 14:59 Intake Total 2385 2120 28 Output Total 350 850 Balance 2035 1270 28 Lab Results last 24 hrs: Laboratory Results - last 24 hr 06/13/16 06/13/16 Range/Units 06:45 06:45 WBC 8.90 (4.0-11.0) K/uL RBC 2.55 L (4.30-5.90) M/uL Hgb 8.2 L (12.0-16.0) g/dL Hct 24.8 L (36.0-46.0) % MCV 97.3 (80.0-98.0) fL MCH 32.2 H (27.0-32.0) pg MCHC 33.1 (31.0-37.0) g/dL RDW Std Deviation 45.5 (28.0-62.0) fl RDW Coeff of Amelia 13 (11.0-15.0) % Plt Count 168 (150-400) K/uL MPV 9.70 (7.40-12.00) fL Neut % (Auto) 62.3 (48.0-80.0) % Lymph % (Auto) 27.3 (16.0-40.0) % [place] % (Auto) 10.2 (0.0-15.0) % Eos % (Auto) 0.1 (0.0-7.0) % Baso % (Auto) 0.1 (0.0-1.5) % Neut # 5.5 (1.4-5.7) K/uL Lymph # 2.4 (0.6-2.4) K/uL [place] # 0.9 H (0.0-0.8) K/uL Eos # 0.0 (0.0-0.7) K/uL Baso # 0.0 (0.0-0.1) K/uL Nucleated RBC % 0.0 /100WBC Nucleated RBCs # 0 K/uL Sodium 139 (136-146) mmol/L Potassium 4.1 (3.5-5.1) mmol/L Chloride 106 (98-110) mmol/L Carbon Dioxide 25 (21-31) mmol/L BUN 10 (6.0-23.0) mg/dL Creatinine 0.7 (0.6-1.5) mg/dL Est Cr Clr Drug Dosing 75.27 mL/min Estimated GFR (MDRD) > 60.0 ml/min Glucose 89 (60-110) mg/dL Calcium 8.1 L (8.8-10.8) mg/dL Med Orders - Current: Current Medications Diphenhydramine HCl (Benadryl) 25 - 50 mg PO Q6H PRN PRN Reason: Itching Hydromorphone HCl (Dilaudid) 0.5 - 1 mg IVPUSH Q3H PRN PRN Reason: Pain Last Admin: 06/12/16 07:40 Dose: 1 mg Lactated Ringer's (Ringers, Lactated) 1,000 mls @ 125 mls/hr IV ASDIRECTED [facility] Last Admin: 06/13/16 01:50 Dose: 125 mls/hr Ondansetron HCl (Zofran) 4 mg IV Q8HR PRN PRN Reason: NAUSEA/VOMITING Last Admin: 06/12/16 08:16 Dose: 4 mg Rivaroxaban (Xarelto) 10 mg PO DAILY [facility] Last Admin: 06/12/16 08:02 Dose: 10 mg Sodium Chloride (Saline Flush) 2.5 ml FLUSH ASDIRECTED PRN PRN Reason: Keep Vein Open Last Admin: 06/11/16 10:21 Dose: 2.5 ml Discontinued Medications Acetaminophen (Tylenol Extra Strength) 1,000 mg PO Q6H [facility] Acetaminophen/Hydrocodone Bitart ([place] 325-10 Mg) 1 - 2 tab PO Q4H PRN PRN Reason: Pain Last Admin: 06/13/16 06:55 Dose: 1 tab Fentanyl (Sublimaze) Confirm Administered Dose 100 mcg .ROUTE .STK-MED ONE Stop: 06/11/16 13:37 Fentanyl (Sublimaze) Confirm Administered Dose 100 mcg .ROUTE .STK-MED ONE Stop: 06/11/16 13:38 Hydromorphone HCl (Dilaudid) 0.5 mg IM ONETIME ONE Stop: 06/11/16 09:54 Last Admin: 06/11/16 10:20 Dose: 0.5 mg Hydromorphone HCl (Dilaudid) 0.5 mg IVPUSH ONETIME ONE Stop: 06/11/16 11:14 Last Admin: 06/11/16 11:20 Dose: 0.5 mg Sodium Chloride (Normal Saline) 1,000 mls @ 999 mls/hr IV STAT ONE Stop: 06/11/16 10:51 Last Admin: 06/11/16 10:21 Dose: 999 mls/hr Sodium Chloride (Normal Saline) 1,000 mls @ 999 mls/hr IV .Bolus ONE Stop: 06/11/16 11:06 Last Admin: 06/11/16 11:12 Dose: 999 mls/hr Cefazolin Sodium/Dextrose 1 gm (/ Premix) 50 mls @ 100 mls/hr IV Q8H ONE Stop: 06/11/16 13:29 Last Admin: 06/11/16 13:35 Dose: Not Given Cefazolin Sodium/Dextrose 1 gm (/ Premix) 50 mls @ 100 mls/hr IV ONETIME ONE Stop: 06/11/16 16:29 Last Admin: 06/11/16 16:33 Dose: Not Given Cefazolin Sodium/Dextrose (Ancef) Confirm Administered Dose 50 mls @ as directed .ROUTE .STK-MED ONE Stop: 06/11/16 15:09 Cefazolin Sodium/Dextrose 1 gm (/ Premix) 50 mls @ 100 mls/hr IV Q8H [facility] Stop: 06/12/16 07:29 Last Admin: 06/12/16 06:02 Dose: 100 mls/hr Midazolam HCl (Versed 1 Mg/Ml) Confirm Administered Dose 2 mg .ROUTE .STK-MED ONE Stop: 06/11/16 13:37 Phenylephrine HCl (Phenylephrine In Ns 100 Mcg/Ml) Confirm Administered Dose 1 mg .ROUTE .STK-MED ONE Stop: 06/11/16 15:01 Phenylephrine HCl (Phenylephrine In Ns 100 Mcg/Ml) Confirm Administered Dose 1 mg .ROUTE .STK-MED ONE Stop: 06/11/16 15:15 Phenylephrine HCl (Frankie-Synephrine) Confirm Administered Dose 10 mg .ROUTE .STK- MED ONE Stop: 06/11/16 15:15 Propofol (Diprivan 20 Ml) Confirm Administered Dose 800 mg .ROUTE .STK-MED ONE Stop: 06/11/16 13:36 Rivaroxaban (Xarelto) 10 mg PO DAILY [facility] Sodium Chloride (Saline Flush) 10 ml FLUSH ASDIRECTED PRN PRN Reason: Keep Vein Open Last Admin: 06/11/16 10:21 Dose: 10 ml Sodium Chloride (Saline Flush) 2.5 ml FLUSH ASDIRECTED PRN PRN Reason: Keep Vein Open Last Admin: 06/11/16 10:21 Dose: 2.5 ml Sodium Chloride (Saline Flush) 10 ml FLUSH ASDIRECTED PRN PRN Reason: Keep Vein Open Last Admin: 06/11/16 10:21 Dose: 10 ml - Exam Wound/Incisions: dressing dry and intact General: alert, oriented Neck: supple Lungs: Normal respiratory effort Cardiovascular: Regular Rate Psy/Mental Status: alert, normal affect, normal mood Physical Findings Comment:: Exam of RLE shows dressing to be intact. No drainage noted on dressing. Thigh soft. No calf TTP. AT/EHL/gastroc 5/5. Sensation intact. DP 2+. - Problem List & Annotations (1) Intertrochanteric fracture of right femur SNOMED Code(s): 830412265 Code(s): S72.141A - DISPLACED INTERTROCHANTERIC FRACTURE OF RIGHT FEMUR, INIT Status: Acute Current Visit: Yes Qualifiers: Encounter type: initial encounter Fracture type: closed Qualified Code(s) : S72.141A - Displaced intertrochanteric fracture of right femur, initial encounter for closed fracture (2) Acute post-hemorrhagic anemia SNOMED Code(s): 898141099 Code(s): D62 - ACUTE POSTHEMORRHAGIC ANEMIA Status: Acute Current Visit: Yes - Problem List Review Problem List Initiated/Reviewed/Updated: Yes - My Orders Last 24 Hours: Active Orders 24 hr Category Date Time Status Urinary Catheter Removal [RC] Per Unit Routine Care 06/13/16 09:56 Ordered RED BLOOD CELLS LP [BBK] Routine Lab 06/13/16 07:40 Results Acetaminophen [Tylenol Extra Strength] Med 06/13/16 09:55 Ordered 1,000 mg PO Q6H PRN Ketorolac [Toradol] Med 06/13/16 09:55 Ordered 30 mg IVPUSH Q6H PRN Rivaroxaban [Xarelto] Med 06/12/16 09:00 Active 10 mg PO DAILY traMADol [Ultram] Med 06/13/16 09:54 Ordered 50 - 100 mg PO Q6H PRN Transfuse RBC [Transfuse Red Blood Cells] [COMM] Oth 06/13/16 07:48 Ordered Routine Medication Orders Diphenhydramine HCl (Benadryl) 25 - 50 mg PO Q6H PRN PRN Reason: Itching Hydromorphone HCl (Dilaudid) 0.5 - 1 mg IVPUSH Q3H PRN PRN Reason: Pain Last Admin: 06/12/16 07:40 Dose: 1 mg Admin: 06/11/16 13:32 Dose: 1 mg Lactated Ringer's (Ringers, Lactated) 1,000 mls @ 125 mls/hr IV ASDIRECTED [facility] Last Admin: 06/13/16 01:50 Dose: 125 mls/hr Infusion: 06/13/16 01:50 Dose: 125 mls/hr Admin: 06/12/16 17:52 Dose: 125 mls/hr Infusion: 06/12/16 17:48 Dose: 125 mls/hr Admin: 06/12/16 09:48 Dose: 125 mls/hr Infusion: 06/12/16 09:08 Dose: 125 mls/hr Admin: 06/12/16 01:08 Dose: 125 mls/hr Infusion: 06/11/16 20:16 Dose: 125 mls/hr Admin: 06/11/16 12:16 Dose: 125 mls/hr Ondansetron HCl (Zofran) 4 mg IV Q8HR PRN PRN Reason: NAUSEA/VOMITING Last Admin: 06/12/16 08:16 Dose: 4 mg Rivaroxaban (Xarelto) 10 mg PO DAILY [facility] Last Admin: 06/12/16 08:02 Dose: 10 mg Sodium Chloride (Saline Flush) 2.5 ml FLUSH ASDIRECTED PRN PRN Reason: Keep Vein Open Last Admin: 06/11/16 10:21 Dose: 2.5 ml - Plan Plan (Free Text/Narrative):: 1. Currently receiving 2U PRBC. Recheck hgb in am. 2. OOB as tolerated, continue PT--WBAT RLE 3. Renita, KING for DVT prophylaxis 4. minimize po narcotics--try to encourage po Tylenol, Ultram and IV Toradol- use [place] 5/325 for breakthrough pain only 5. d/c edith 6. will check disposition tomorrow--may benefit from short term stay at [facility] in [place] for additional rehab
[2016-06-13] MEDS ORDERED: Acetaminophen/HYDROcodone 325-5 MG Tab PO PRN (10:04)
--- NOTE | 2016-06-13 11:56 | PCM.PN ---
- Review of Systems Systems Review Comment:: reports mild pain from fracture - Patient Data Vitals - most recent: Last Vital Signs Temp 36.8 C 06/13/16 11:39 Pulse 107 H 06/13/16 11:39 Resp 16 06/13/16 11:39 BP 112/59 L 06/13/16 11:39 Pulse Ox 98 06/13/16 11:39 Weight - most recent: 57.5 kg I&O - last 24 hours: Intake & Output 06/12/16 06/13/16 06/13/16 22:59 06:59 14:59 Intake Total 2385 2120 279 Output Total 350 850 Balance 2035 1270 279 Lab Results last 24 hrs: Laboratory Results - last 24 hr 06/13/16 06/13/16 Range/Units 06:45 06:45 WBC 8.90 (4.0-11.0) K/uL RBC 2.55 L (4.30-5.90) M/uL Hgb 8.2 L (12.0-16.0) g/dL Hct 24.8 L (36.0-46.0) % MCV 97.3 (80.0-98.0) fL MCH 32.2 H (27.0-32.0) pg MCHC 33.1 (31.0-37.0) g/dL RDW Std Deviation 45.5 (28.0-62.0) fl RDW Coeff of Amelia 13 (11.0-15.0) % Plt Count 168 (150-400) K/uL MPV 9.70 (7.40-12.00) fL Neut % (Auto) 62.3 (48.0-80.0) % Lymph % (Auto) 27.3 (16.0-40.0) % [place] % (Auto) 10.2 (0.0-15.0) % Eos % (Auto) 0.1 (0.0-7.0) % Baso % (Auto) 0.1 (0.0-1.5) % Neut # 5.5 (1.4-5.7) K/uL Lymph # 2.4 (0.6-2.4) K/uL [place] # 0.9 H (0.0-0.8) K/uL Eos # 0.0 (0.0-0.7) K/uL Baso # 0.0 (0.0-0.1) K/uL Nucleated RBC % 0.0 /100WBC Nucleated RBCs # 0 K/uL Sodium 139 (136-146) mmol/L Potassium 4.1 (3.5-5.1) mmol/L Chloride 106 (98-110) mmol/L Carbon Dioxide 25 (21-31) mmol/L BUN 10 (6.0-23.0) mg/dL Creatinine 0.7 (0.6-1.5) mg/dL Est Cr Clr Drug Dosing 75.27 mL/min Estimated GFR (MDRD) > 60.0 ml/min Glucose 89 (60-110) mg/dL Calcium 8.1 L (8.8-10.8) mg/dL Med Orders - Current: Current Medications Acetaminophen (Tylenol Extra Strength) 1,000 mg PO Q6H PRN PRN Reason: pain Acetaminophen/Hydrocodone Bitart ([place] 325-5 Mg) 1 - 2 tab PO Q6H PRN PRN Reason: Pain Diphenhydramine HCl (Benadryl) 25 - 50 mg PO Q6H PRN PRN Reason: Itching Hydromorphone HCl (Dilaudid) 0.5 - 1 mg IVPUSH Q3H PRN PRN Reason: Pain Last Admin: 06/13/16 09:58 Dose: 1 mg Lactated Ringer's (Ringers, Lactated) 1,000 mls @ 125 mls/hr IV ASDIRECTED [facility] Last Admin: 06/13/16 01:50 Dose: 125 mls/hr Ketorolac Tromethamine (Toradol) 30 mg IVPUSH Q6H PRN PRN Reason: Pain Ondansetron HCl (Zofran) 4 mg IV Q8HR PRN PRN Reason: NAUSEA/VOMITING Last Admin: 06/12/16 08:16 Dose: 4 mg Rivaroxaban (Xarelto) 10 mg PO DAILY [facility] Last Admin: 06/13/16 09:58 Dose: 10 mg Sodium Chloride (Saline Flush) 2.5 ml FLUSH ASDIRECTED PRN PRN Reason: Keep Vein Open Last Admin: 06/11/16 10:21 Dose: 2.5 ml Tramadol HCl (Ultram) 50 - 100 mg PO Q6H PRN PRN Reason: Breakthrough Pain Discontinued Medications Acetaminophen (Tylenol Extra Strength) 1,000 mg PO Q6H [facility] Acetaminophen/Hydrocodone Bitart ([place] 325-10 Mg) 1 - 2 tab PO Q4H PRN PRN Reason: Pain Last Admin: 06/13/16 06:55 Dose: 1 tab Fentanyl (Sublimaze) Confirm Administered Dose 100 mcg .ROUTE .STK-MED ONE Stop: 06/11/16 13:37 Fentanyl (Sublimaze) Confirm Administered Dose 100 mcg .ROUTE .STK-MED ONE Stop: 06/11/16 13:38 Hydromorphone HCl (Dilaudid) 0.5 mg IM ONETIME ONE Stop: 06/11/16 09:54 Last Admin: 06/11/16 10:20 Dose: 0.5 mg Hydromorphone HCl (Dilaudid) 0.5 mg IVPUSH ONETIME ONE Stop: 06/11/16 11:14 Last Admin: 06/11/16 11:20 Dose: 0.5 mg Sodium Chloride (Normal Saline) 1,000 mls @ 999 mls/hr IV STAT ONE Stop: 06/11/16 10:51 Last Admin: 06/11/16 10:21 Dose: 999 mls/hr Sodium Chloride (Normal Saline) 1,000 mls @ 999 mls/hr IV .Bolus ONE Stop: 06/11/16 11:06 Last Admin: 06/11/16 11:12 Dose: 999 mls/hr Cefazolin Sodium/Dextrose 1 gm (/ Premix) 50 mls @ 100 mls/hr IV Q8H ONE Stop: 06/11/16 13:29 Last Admin: 06/11/16 13:35 Dose: Not Given Cefazolin Sodium/Dextrose 1 gm (/ Premix) 50 mls @ 100 mls/hr IV ONETIME ONE Stop: 06/11/16 16:29 Last Admin: 06/11/16 16:33 Dose: Not Given Cefazolin Sodium/Dextrose (Ancef) Confirm Administered Dose 50 mls @ as directed .ROUTE .STK-MED ONE Stop: 06/11/16 15:09 Cefazolin Sodium/Dextrose 1 gm (/ Premix) 50 mls @ 100 mls/hr IV Q8H [facility] Stop: 06/12/16 07:29 Last Admin: 06/12/16 06:02 Dose: 100 mls/hr Midazolam HCl (Versed 1 Mg/Ml) Confirm Administered Dose 2 mg .ROUTE .STK-MED ONE Stop: 06/11/16 13:37 Phenylephrine HCl (Phenylephrine In Ns 100 Mcg/Ml) Confirm Administered Dose 1 mg .ROUTE .STK-MED ONE Stop: 06/11/16 15:01 Phenylephrine HCl (Phenylephrine In Ns 100 Mcg/Ml) Confirm Administered Dose 1 mg .ROUTE .STK-MED ONE Stop: 06/11/16 15:15 Phenylephrine HCl (Frankie-Synephrine) Confirm Administered Dose 10 mg .ROUTE .STK- MED ONE Stop: 06/11/16 15:15 Propofol (Diprivan 20 Ml) Confirm Administered Dose 800 mg .ROUTE .STK-MED ONE Stop: 06/11/16 13:36 Rivaroxaban (Xarelto) 10 mg PO DAILY [facility] Sodium Chloride (Saline Flush) 10 ml FLUSH ASDIRECTED PRN PRN Reason: Keep Vein Open Last Admin: 06/11/16 10:21 Dose: 10 ml Sodium Chloride (Saline Flush) 2.5 ml FLUSH ASDIRECTED PRN PRN Reason: Keep Vein Open Last Admin: 06/11/16 10:21 Dose: 2.5 ml Sodium Chloride (Saline Flush) 10 ml FLUSH ASDIRECTED PRN PRN Reason: Keep Vein Open Last Admin: 06/11/16 10:21 Dose: 10 ml - Exam General: alert, oriented Lungs: Clear to auscultation, Normal respiratory effort Cardiovascular: Regular Rate, Regular Rhythm Abdomen: bowel sounds present, soft, no tenderness, no distension Skin: warm, dry, intact - Problem List Review Problem List Initiated/Reviewed/Updated: Yes - Plan Plan:: This 60 year old female admitted with R hip fracture R hip fracture: Dr Staley consulted, s/p ORIF, PT consulted' Anemia: transfusing two units pRBC VTE: Xarelto Dispo: 2-4 days
[2016-06-13] MEDS: Acetaminophen 500 MG Tab PO PRN ×2 (14:41→21:50)
[2016-06-13] MEDS: traMADol 50 MG Tab PO PRN (16:46)
[2016-06-14 05:04] LABS: CHLORIDE,CL 105 mmol/L (98-110); SODIUM,NA 140 mmol/L (136-146)
--- NOTE | 2016-06-14 07:42 | PCM.SURGPN ---
- General Info Date of Service: 06/14/16 Date of Surgery/Procedure: 06/12/16 POD#: 2 Functional Status: Reports: pain controlled, tolerating diet, ambulating, urinating - Review of Systems General: Reports: No Symptoms Pulmonary: Reports: no symptoms Cardiovascular: Reports: No Symptoms Gastrointestinal: Reports: No symptoms Genitourinary: Reports: no symptoms Musculoskeletal: Reports: leg pain, joint pain, joint swelling Neurological: Reports: No Symptoms Psychiatric: Reports: no symptoms - Patient Data Vitals - most recent: Last Vital Signs Temp 37.1 C 06/14/16 04:00 Pulse 81 06/14/16 00:00 Resp 17 06/14/16 04:00 BP 119/59 L 06/14/16 04:00 Pulse Ox 92 L 06/14/16 04:00 Weight - most recent: 57.5 kg I&O - last 24 hours: Intake & Output 06/13/16 06/14/16 06/14/16 22:59 06:59 14:59 Intake Total 300 1631 Output Total 500 430 Balance -200 1201 Lab Results last 24 hrs: Laboratory Results - last 24 hr 06/14/16 06/14/16 Range/Units 04:22 04:22 WBC 8.45 (4.0-11.0) K/uL RBC 3.33 L (4.30-5.90) M/uL Hgb 10.1 L (12.0-16.0) g/dL Hct 30.1 L (36.0-46.0) % MCV 90.4 (80.0-98.0) fL MCH 30.3 (27.0-32.0) pg MCHC 33.6 (31.0-37.0) g/dL RDW Std Deviation 58.4 (28.0-62.0) fl RDW Coeff of Amelia 18 H (11.0-15.0) % Plt Count 158 (150-400) K/uL MPV 10.00 (7.40-12.00) fL Neut % (Auto) 68.8 (48.0-80.0) % Lymph % (Auto) 20.9 (16.0-40.0) % [place] % (Auto) 9.5 (0.0-15.0) % Eos % (Auto) 0.7 (0.0-7.0) % Baso % (Auto) 0.1 (0.0-1.5) % Neut # 5.8 H (1.4-5.7) K/uL Lymph # 1.8 (0.6-2.4) K/uL [place] # 0.8 (0.0-0.8) K/uL Eos # 0.1 (0.0-0.7) K/uL Baso # 0.0 (0.0-0.1) K/uL Nucleated RBC % 0.0 /100WBC Nucleated RBCs # 0 K/uL Sodium 140 (136-146) mmol/L Potassium 4.1 (3.5-5.1) mmol/L Chloride 105 (98-110) mmol/L Carbon Dioxide 27 (21-31) mmol/L BUN 10 (6.0-23.0) mg/dL Creatinine 0.6 (0.6-1.5) mg/dL Est Cr Clr Drug Dosing 87.81 mL/min Estimated GFR (MDRD) > 60.0 ml/min Glucose 91 (60-110) mg/dL Calcium 8.0 L (8.8-10.8) mg/dL Med Orders - Current: Current Medications Acetaminophen (Tylenol Extra Strength) 1,000 mg PO Q6H PRN PRN Reason: pain Last Admin: 06/13/16 21:50 Dose: 1,000 mg Acetaminophen/Hydrocodone Bitart ([place] 325-5 Mg) 1 - 2 tab PO Q6H PRN PRN Reason: Pain Diphenhydramine HCl (Benadryl) 25 - 50 mg PO Q6H PRN PRN Reason: Itching Hydromorphone HCl (Dilaudid) 0.5 - 1 mg IVPUSH Q3H PRN PRN Reason: Pain Last Admin: 06/13/16 09:58 Dose: 1 mg Lactated Ringer's (Ringers, Lactated) 1,000 mls @ 125 mls/hr IV ASDIRECTED [facility] Last Admin: 06/13/16 23:55 Dose: 125 mls/hr Ketorolac Tromethamine (Toradol) 30 mg IVPUSH Q6H PRN PRN Reason: Pain Last Admin: 06/13/16 16:03 Dose: 30 mg Ondansetron HCl (Zofran) 4 mg IV Q8HR PRN PRN Reason: NAUSEA/VOMITING Last Admin: 06/12/16 08:16 Dose: 4 mg Rivaroxaban (Xarelto) 10 mg PO DAILY [facility] Last Admin: 06/13/16 09:58 Dose: 10 mg Sodium Chloride (Saline Flush) 2.5 ml FLUSH ASDIRECTED PRN PRN Reason: Keep Vein Open Last Admin: 06/11/16 10:21 Dose: 2.5 ml Tramadol HCl (Ultram) 50 - 100 mg PO Q6H PRN PRN Reason: Breakthrough Pain Last Admin: 06/13/16 16:46 Dose: 50 mg Discontinued Medications Acetaminophen (Tylenol Extra Strength) 1,000 mg PO Q6H [facility] Acetaminophen/Hydrocodone Bitart ([place] 325-10 Mg) 1 - 2 tab PO Q4H PRN PRN Reason: Pain Last Admin: 06/13/16 06:55 Dose: 1 tab Fentanyl (Sublimaze) Confirm Administered Dose 100 mcg .ROUTE .STK-MED ONE Stop: 06/11/16 13:37 Fentanyl (Sublimaze) Confirm Administered Dose 100 mcg .ROUTE .STK-MED ONE Stop: 06/11/16 13:38 Hydromorphone HCl (Dilaudid) 0.5 mg IM ONETIME ONE Stop: 06/11/16 09:54 Last Admin: 06/11/16 10:20 Dose: 0.5 mg Hydromorphone HCl (Dilaudid) 0.5 mg IVPUSH ONETIME ONE Stop: 06/11/16 11:14 Last Admin: 06/11/16 11:20 Dose: 0.5 mg Sodium Chloride (Normal Saline) 1,000 mls @ 999 mls/hr IV STAT ONE Stop: 06/11/16 10:51 Last Admin: 06/11/16 10:21 Dose: 999 mls/hr Sodium Chloride (Normal Saline) 1,000 mls @ 999 mls/hr IV .Bolus ONE Stop: 06/11/16 11:06 Last Admin: 06/11/16 11:12 Dose: 999 mls/hr Cefazolin Sodium/Dextrose 1 gm (/ Premix) 50 mls @ 100 mls/hr IV Q8H ONE Stop: 06/11/16 13:29 Last Admin: 06/11/16 13:35 Dose: Not Given Cefazolin Sodium/Dextrose 1 gm (/ Premix) 50 mls @ 100 mls/hr IV ONETIME ONE Stop: 06/11/16 16:29 Last Admin: 06/11/16 16:33 Dose: Not Given Cefazolin Sodium/Dextrose (Ancef) Confirm Administered Dose 50 mls @ as directed .ROUTE .STK-MED ONE Stop: 06/11/16 15:09 Cefazolin Sodium/Dextrose 1 gm (/ Premix) 50 mls @ 100 mls/hr IV Q8H [facility] Stop: 06/12/16 07:29 Last Admin: 06/12/16 06:02 Dose: 100 mls/hr Midazolam HCl (Versed 1 Mg/Ml) Confirm Administered Dose 2 mg .ROUTE .STK-MED ONE Stop: 06/11/16 13:37 Phenylephrine HCl (Phenylephrine In Ns 100 Mcg/Ml) Confirm Administered Dose 1 mg .ROUTE .STK-MED ONE Stop: 06/11/16 15:01 Phenylephrine HCl (Phenylephrine In Ns 100 Mcg/Ml) Confirm Administered Dose 1 mg .ROUTE .STK-MED ONE Stop: 06/11/16 15:15 Phenylephrine HCl (Frankie-Synephrine) Confirm Administered Dose 10 mg .ROUTE .STK- MED ONE Stop: 06/11/16 15:15 Propofol (Diprivan 20 Ml) Confirm Administered Dose 800 mg .ROUTE .STK-MED ONE Stop: 06/11/16 13:36 Rivaroxaban (Xarelto) 10 mg PO DAILY [facility] Sodium Chloride (Saline Flush) 10 ml FLUSH ASDIRECTED PRN PRN Reason: Keep Vein Open Last Admin: 06/11/16 10:21 Dose: 10 ml Sodium Chloride (Saline Flush) 2.5 ml FLUSH ASDIRECTED PRN PRN Reason: Keep Vein Open Last Admin: 06/11/16 10:21 Dose: 2.5 ml Sodium Chloride (Saline Flush) 10 ml FLUSH ASDIRECTED PRN PRN Reason: Keep Vein Open Last Admin: 06/11/16 10:21 Dose: 10 ml - Exam Wound/Incisions: dressing dry and intact General: alert, oriented HEENT: Pupils equal, Pupils reactive Lungs: Normal respiratory effort Cardiovascular: Regular Rate Neurological: no new focal deficit Psy/Mental Status: alert, normal affect, normal mood - Problem List Review Problem List Initiated/Reviewed/Updated: Yes - My Orders Last 24 Hours: Active Orders 24 hr Category Date Time Status Urinary Catheter Removal [RC] Per Unit Routine Care 06/13/16 09:56 Active Acetaminophen [Tylenol Extra Strength] Med 06/13/16 09:55 Active 1,000 mg PO Q6H PRN Acetaminophen/HYDROcodone [[place] 325-5 MG] Med 06/13/16 10:04 Active 1 - 2 tab PO Q6H PRN Ketorolac [Toradol] Med 06/13/16 09:55 Active 30 mg IVPUSH Q6H PRN traMADol [Ultram] Med 06/13/16 09:54 Active 50 - 100 mg PO Q6H PRN Transfuse RBC [Transfuse Red Blood Cells] [COMM] Oth 06/13/16 07:48 Ordered Routine Medication Orders Acetaminophen (Tylenol Extra Strength) 1,000 mg PO Q6H PRN PRN Reason: pain Last Admin: 06/13/16 21:50 Dose: 1,000 mg Admin: 06/13/16 14:41 Dose: 1,000 mg Acetaminophen/Hydrocodone Bitart ([place] 325-5 Mg) 1 - 2 tab PO Q6H PRN PRN Reason: Pain Diphenhydramine HCl (Benadryl) 25 - 50 mg PO Q6H PRN PRN Reason: Itching Hydromorphone HCl (Dilaudid) 0.5 - 1 mg IVPUSH Q3H PRN PRN Reason: Pain Last Admin: 06/13/16 09:58 Dose: 1 mg Admin: 06/12/16 07:40 Dose: 1 mg Admin: 06/11/16 13:32 Dose: 1 mg Lactated Ringer's (Ringers, Lactated) 1,000 mls @ 125 mls/hr IV ASDIRECTED ROGER Last Admin: 06/13/16 23:55 Dose: 125 mls/hr Infusion: 06/13/16 23:35 Dose: 125 mls/hr Admin: 06/13/16 15:35 Dose: 125 mls/hr Infusion: 06/13/16 09:50 Dose: 125 mls/hr Admin: 06/13/16 01:50 Dose: 125 mls/hr Infusion: 06/13/16 01:50 Dose: 125 mls/hr Admin: 06/12/16 17:52 Dose: 125 mls/hr Infusion: 06/12/16 17:48 Dose: 125 mls/hr Admin: 06/12/16 09:48 Dose: 125 mls/hr Infusion: 06/12/16 09:08 Dose: 125 mls/hr Admin: 06/12/16 01:08 Dose: 125 mls/hr Infusion: 06/11/16 20:16 Dose: 125 mls/hr Admin: 06/11/16 12:16 Dose: 125 mls/hr Ketorolac Tromethamine (Toradol) 30 mg IVPUSH Q6H PRN PRN Reason: Pain Last Admin: 06/13/16 16:03 Dose: 30 mg Ondansetron HCl (Zofran) 4 mg IV Q8HR PRN PRN Reason: NAUSEA/VOMITING Last Admin: 06/12/16 08:16 Dose: 4 mg Rivaroxaban (Xarelto) 10 mg PO DAILY ROGRE Last Admin: 06/13/16 09:58 Dose: 10 mg Admin: 06/12/16 08:02 Dose: 10 mg Sodium Chloride (Saline Flush) 2.5 ml FLUSH ASDIRECTED PRN PRN Reason: Keep Vein Open Last Admin: 06/11/16 10:21 Dose: 2.5 ml Tramadol HCl (Ultram) 50 - 100 mg PO Q6H PRN PRN Reason: Breakthrough Pain Last Admin: 06/13/16 16:46 Dose: 50 mg - Assessment Assessment (Free Text/Narrative):: Patient up to chair this morning Pain controlled overnight UO 930 mL Hgb 10.1 VSS - Plan Plan (Free Text/Narrative):: Symptoms of dizziness and lightheaded have resolved since yesterday Patient reports decreased appetite, did eat dinner last night Patient has not tried to ambulate with physical therapy Continue pain management Continue Xarelto 10mg daily for DVT prophylaxis Discussed with patient possible D/C to [facility]
[2016-06-14] MEDS: Lactated Ringers 1,000 ML IV SCH (08:00)
[2016-06-14] MEDS ORDERED: Bisacodyl 10 MG Supp RECTAL PRN (08:15)
[2016-06-14] MEDS: Rivaroxaban 10 MG Tab PO SCH (08:25)
--- NOTE | 2016-06-14 09:10 | PCM.PN ---
- General Info Date of Service: 06/14/16 Admission Dx/Problem (Free Text): Admission Diagnosis/Problem Admission Diagnosis/Problem Fracture of neck of femur, hip Subjective Update: Sitting up in chair eating breakfast. Reports pain is well controlled. Denies any chest pain or SOB. Isn't drinking well because "water here tastes bad". Encouraged to drink more liquids excluding coffee. - Review of Systems General: Reports: No Symptoms. Denies: Fever HEENT: Reports: no symptoms. Denies: sinus congestion, sore throat Pulmonary: Reports: no symptoms. Denies: shortness of breath, cough, sputum Cardiovascular: Reports: No Symptoms. Denies: Chest Pain, Palpitations, Lightheadedness Gastrointestinal: Reports: No symptoms. Denies: Abdominal pain, Nausea, Vomiting Genitourinary: Reports: no symptoms. Denies: dysuria, frequency, burning - Patient Data Vitals - most recent: Last Vital Signs Temp 98.5 F 06/14/16 08:35 Pulse 96 06/14/16 08:35 Resp 19 06/14/16 08:35 BP 132/63 06/14/16 08:35 Pulse Ox 90 L 06/14/16 08:35 Weight - most recent: 57.5 kg I&O - last 24 hours: Intake & Output 06/13/16 06/14/16 06/14/16 22:59 06:59 14:59 Intake Total 300 1631 Output Total 500 430 Balance -200 1201 Lab Results last 24 hrs: Laboratory Results - last 24 hr 06/14/16 06/14/16 Range/Units 04:22 04:22 WBC 8.45 (4.0-11.0) K/uL RBC 3.33 L (4.30-5.90) M/uL Hgb 10.1 L (12.0-16.0) g/dL Hct 30.1 L (36.0-46.0) % MCV 90.4 (80.0-98.0) fL MCH 30.3 (27.0-32.0) pg MCHC 33.6 (31.0-37.0) g/dL RDW Std Deviation 58.4 (28.0-62.0) fl RDW Coeff of [place] 18 H (11.0-15.0) % Plt Count 158 (150-400) K/uL MPV 10.00 (7.40-12.00) fL Neut % (Auto) 68.8 (48.0-80.0) % Lymph % (Auto) 20.9 (16.0-40.0) % [place] % (Auto) 9.5 (0.0-15.0) % Eos % (Auto) 0.7 (0.0-7.0) % Baso % (Auto) 0.1 (0.0-1.5) % Neut # 5.8 H (1.4-5.7) K/uL Lymph # 1.8 (0.6-2.4) K/uL [place] # 0.8 (0.0-0.8) K/uL Eos # 0.1 (0.0-0.7) K/uL Baso # 0.0 (0.0-0.1) K/uL Nucleated RBC % 0.0 /100WBC Nucleated RBCs # 0 K/uL Sodium 140 (136-146) mmol/L Potassium 4.1 (3.5-5.1) mmol/L Chloride 105 (98-110) mmol/L Carbon Dioxide 27 (21-31) mmol/L BUN 10 (6.0-23.0) mg/dL Creatinine 0.6 (0.6-1.5) mg/dL Est Cr Clr Drug Dosing 87.81 mL/min Estimated GFR (MDRD) > 60.0 ml/min Glucose 91 (60-110) mg/dL Calcium 8.0 L (8.8-10.8) mg/dL Med Orders - Current: Current Medications Acetaminophen (Tylenol Extra Strength) 1,000 mg PO Q6H PRN PRN Reason: pain Last Admin: 06/13/16 21:50 Dose: 1,000 mg Acetaminophen/Hydrocodone Bitart ([place] 325-5 Mg) 1 - 2 tab PO Q6H PRN PRN Reason: Pain Bisacodyl (Dulcolax) 10 mg RECTAL DAILY PRN PRN Reason: Constipation Diphenhydramine HCl (Benadryl) 25 - 50 mg PO Q6H PRN PRN Reason: Itching Docusate Sodium (Colace) 100 mg PO BID ROGER Hydromorphone HCl (Dilaudid) 0.5 - 1 mg IVPUSH Q3H PRN PRN Reason: Pain Last Admin: 06/13/16 09:58 Dose: 1 mg Lactated Ringer's (Ringers, Lactated) 1,000 mls @ 125 mls/hr IV ASDIRECTED ROGER Last Admin: 06/14/16 08:00 Dose: 125 mls/hr Ketorolac Tromethamine (Toradol) 30 mg IVPUSH Q6H PRN PRN Reason: Pain Last Admin: 06/13/16 16:03 Dose: 30 mg Ondansetron HCl (Zofran) 4 mg IV Q8HR PRN PRN Reason: NAUSEA/VOMITING Last Admin: 06/12/16 08:16 Dose: 4 mg Rivaroxaban (Xarelto) 10 mg PO DAILY ROGER Last Admin: 06/14/16 08:25 Dose: 10 mg Sodium Chloride (Saline Flush) 2.5 ml FLUSH ASDIRECTED PRN PRN Reason: Keep Vein Open Last Admin: 06/11/16 10:21 Dose: 2.5 ml Tramadol HCl (Ultram) 50 - 100 mg PO Q6H PRN PRN Reason: Breakthrough Pain Last Admin: 06/13/16 16:46 Dose: 50 mg Discontinued Medications Acetaminophen (Tylenol Extra Strength) 1,000 mg PO Q6H [facility] Acetaminophen/Hydrocodone Bitart ([place] 325-10 Mg) 1 - 2 tab PO Q4H PRN PRN Reason: Pain Last Admin: 06/13/16 06:55 Dose: 1 tab Fentanyl (Sublimaze) Confirm Administered Dose 100 mcg .ROUTE .STK-MED ONE Stop: 06/11/16 13:37 Fentanyl (Sublimaze) Confirm Administered Dose 100 mcg .ROUTE .STK-MED ONE Stop: 06/11/16 13:38 Hydromorphone HCl (Dilaudid) 0.5 mg IM ONETIME ONE Stop: 06/11/16 09:54 Last Admin: 06/11/16 10:20 Dose: 0.5 mg Hydromorphone HCl (Dilaudid) 0.5 mg IVPUSH ONETIME ONE Stop: 06/11/16 11:14 Last Admin: 06/11/16 11:20 Dose: 0.5 mg Sodium Chloride (Normal Saline) 1,000 mls @ 999 mls/hr IV STAT ONE Stop: 06/11/16 10:51 Last Admin: 06/11/16 10:21 Dose: 999 mls/hr Sodium Chloride (Normal Saline) 1,000 mls @ 999 mls/hr IV .Bolus ONE Stop: 06/11/16 11:06 Last Admin: 06/11/16 11:12 Dose: 999 mls/hr Cefazolin Sodium/Dextrose 1 gm (/ Premix) 50 mls @ 100 mls/hr IV Q8H ONE Stop: 06/11/16 13:29 Last Admin: 06/11/16 13:35 Dose: Not Given Cefazolin Sodium/Dextrose 1 gm (/ Premix) 50 mls @ 100 mls/hr IV ONETIME ONE Stop: 06/11/16 16:29 Last Admin: 06/11/16 16:33 Dose: Not Given Cefazolin Sodium/Dextrose (Ancef) Confirm Administered Dose 50 mls @ as directed .ROUTE .STK-MED ONE Stop: 06/11/16 15:09 Cefazolin Sodium/Dextrose 1 gm (/ Premix) 50 mls @ 100 mls/hr IV Q8H ROGER Stop: 06/12/16 07:29 Last Admin: 06/12/16 06:02 Dose: 100 mls/hr Midazolam HCl (Versed 1 Mg/Ml) Confirm Administered Dose 2 mg .ROUTE .STK-MED ONE Stop: 06/11/16 13:37 Phenylephrine HCl (Phenylephrine In Ns 100 Mcg/Ml) Confirm Administered Dose 1 mg .ROUTE .STK-MED ONE Stop: 06/11/16 15:01 Phenylephrine HCl (Phenylephrine In Ns 100 Mcg/Ml) Confirm Administered Dose 1 mg .ROUTE .STK-MED ONE Stop: 06/11/16 15:15 Phenylephrine HCl (Frankie-Synephrine) Confirm Administered Dose 10 mg .ROUTE .STK- MED ONE Stop: 06/11/16 15:15 Propofol (Diprivan 20 Ml) Confirm Administered Dose 800 mg .ROUTE .STK-MED ONE Stop: 06/11/16 13:36 Rivaroxaban (Xarelto) 10 mg PO DAILY [facility] Sodium Chloride (Saline Flush) 10 ml FLUSH ASDIRECTED PRN PRN Reason: Keep Vein Open Last Admin: 06/11/16 10:21 Dose: 10 ml Sodium Chloride (Saline Flush) 2.5 ml FLUSH ASDIRECTED PRN PRN Reason: Keep Vein Open Last Admin: 06/11/16 10:21 Dose: 2.5 ml Sodium Chloride (Saline Flush) 10 ml FLUSH ASDIRECTED PRN PRN Reason: Keep Vein Open Last Admin: 06/11/16 10:21 Dose: 10 ml - Exam General: alert, oriented, cooperative Neck: supple Lungs: Clear to auscultation, Normal respiratory effort Cardiovascular: Regular Rate, Regular Rhythm Abdomen: bowel sounds present, soft, no tenderness, no distension Extremities: normal pulses, edema (trace edema to affected leg R, edema noted to R thigh) Wound/Incisions: dressing dry and intact (no surrounding erythema or bruising noted. ) Neurological: no new focal deficit Psy/Mental Status: alert, normal affect, normal mood - Problem List & Annotations (1) Intertrochanteric fracture of right femur SNOMED Code(s): 623833725 Code(s): S72.141A - DISPLACED INTERTROCHANTERIC FRACTURE OF RIGHT FEMUR, INIT Status: Acute Current Visit: Yes Qualifiers: Encounter type: initial encounter Fracture type: closed Qualified Code(s) : S72.141A - Displaced intertrochanteric fracture of right femur, initial encounter for closed fracture (2) Smoker SNOMED Code(s): 50639190 Code(s): F17.200 - NICOTINE DEPENDENCE, UNSPECIFIED, UNCOMPLICATED Status: Chronic Current Visit: Yes - Problem List Review Problem List Initiated/Reviewed/Updated: Yes - My Orders Last 24 Hours: My Active Orders 06/14/16 08:15 Bisacodyl [Dulcolax] 10 mg RECTAL DAILY PRN 06/14/16 09:00 Docusate Sodium [Colace] 100 mg PO BID - Plan Plan:: This 60 year old female admitted with R hip fracture 1.R hip fracture: Dr Staley consulted, s/p ORIF, PT consulted. Dr. Staley recommended swing bed, patient has no insurance so unable to do this. Will likely go home with PT. Will see how PT goes this am and talk with Dr. Staley regarding plan for discharge. Medically she is stable for discharge. 2. Anemia: Transfused 2 units yesterday, Hgb today 10.1. No longer having lightheadedness or dizziness. VTE: Xarelto Dispo: 2-4 days
[2016-06-14] MEDS: Docusate Sodium 100 MG Cap PO SCH ×2 (09:35→20:16)
[2016-06-14] MEDS: Acetaminophen 500 MG Tab PO PRN ×2 (09:35→18:36)
--- NOTE | 2016-06-14 10:43 | CR ---
EXAMINATION: Right hip HISTORY: Fracture COMPARISON: Same day TECHNIQUE: 5 fluoroscopic images provided FINDINGS/IMPRESSION: Operative control films demonstrate placement of an intramedullary [place] with an interlocking femoral neck component. The intertrochanteric fracture appears reduced with a small dis placed lesser trochanteric component.
[2016-06-14] MEDS ORDERED: Sodium Chloride 0.9% 2.5 ML Syringe FLUSH PRN (12:31)
[2016-06-14] MEDS ORDERED: Sodium Chloride 0.9% 10 ML Syringe FLUSH PRN (12:31)
--- NOTE | 2016-06-14 16:30 | PCM.SN ---
- Free Text/Narrative Note: Patient seen and examined. Agree with ROWAN Quach note. Patient has been up with physical therapy. Her pain has been controlled. She did receive 2 units of packed red blood cells yesterday. She denies any further dizziness. She states that her appetite has been poor. Exam of the right hip shows the dressing to be dry and intact. I compartments are soft. She has no calf tenderness. AT/EHL/gastroc 5/5. Sensation grossly intact. DP/PT pulses 2+. At this time I recommended that we continue to increase her activity. I did discuss discharge options with her including swing bed versus returning home with home health. She would like to try to return home. She does have family that is available to assist her. Will plan on discharging her tomorrow. We will see if home health would be an option for her.
[2016-06-14] MEDS: traMADol 50 MG Tab PO PRN (19:29)
--- NOTE | 2016-06-15 07:58 | PCM.SURGPN ---
- General Info Date of Service: 06/15/16 Date of Surgery/Procedure: 06/11/16 POD#: 4 Functional Status: Reports: pain controlled, tolerating diet, ambulating, urinating - Review of Systems General: Reports: No Symptoms Pulmonary: Reports: no symptoms Cardiovascular: Reports: No Symptoms Gastrointestinal: Reports: No symptoms Genitourinary: Reports: no symptoms Musculoskeletal: Reports: leg pain, joint pain, joint swelling Neurological: Reports: No Symptoms Psychiatric: Reports: no symptoms Systems Review Comment:: RLE gastroc, EHL and anterior tibialis strength 5/5. Sensation intact distally. - Patient Data Vitals - most recent: Last Vital Signs Temp 36.8 C 06/15/16 04:00 Pulse 70 06/14/16 16:00 Resp 17 06/15/16 04:00 BP 135/65 06/15/16 04:00 Pulse Ox 90 L 06/15/16 04:00 Weight - most recent: 57.5 kg I&O - last 24 hours: Intake & Output 06/14/16 06/15/16 06/15/16 22:59 06:59 14:59 Intake Total 800 320 Output Total 900 500 Balance -100 -180 Lab Results last 24 hrs: Laboratory Results - last 24 hr 06/15/16 Range/Units 04:23 Hgb 9.9 L (12.0-16.0) g/dL Hct 29.3 L (36.0-46.0) % Med Orders - Current: Current Medications Acetaminophen (Tylenol Extra Strength) 1,000 mg PO Q6H PRN PRN Reason: pain Last Admin: 06/14/16 18:36 Dose: 1,000 mg Acetaminophen/Hydrocodone Bitart ([place] 325-5 Mg) 1 - 2 tab PO Q6H PRN PRN Reason: Pain Bisacodyl (Dulcolax) 10 mg RECTAL DAILY PRN PRN Reason: Constipation Diphenhydramine HCl (Benadryl) 25 - 50 mg PO Q6H PRN PRN Reason: Itching Docusate Sodium (Colace) 100 mg PO BID ROGER Last Admin: 06/14/16 20:16 Dose: 100 mg Hydromorphone HCl (Dilaudid) 0.5 - 1 mg IVPUSH Q3H PRN PRN Reason: Pain Last Admin: 06/13/16 09:58 Dose: 1 mg Ketorolac Tromethamine (Toradol) 30 mg IVPUSH Q6H PRN PRN Reason: Pain Last Admin: 06/13/16 16:03 Dose: 30 mg Ondansetron HCl (Zofran) 4 mg IV Q8HR PRN PRN Reason: NAUSEA/VOMITING Last Admin: 06/12/16 08:16 Dose: 4 mg Rivaroxaban (Xarelto) 10 mg PO DAILY ROGER Last Admin: 06/14/16 08:25 Dose: 10 mg Sodium Chloride (Saline Flush) 2.5 ml FLUSH ASDIRECTED PRN PRN Reason: Keep Vein Open Last Admin: 06/11/16 10:21 Dose: 2.5 ml Sodium Chloride (Saline Flush) 10 ml FLUSH ASDIRECTED PRN PRN Reason: Keep Vein Open Sodium Chloride (Saline Flush) 2.5 ml FLUSH ASDIRECTED PRN PRN Reason: Keep Vein Open Tramadol HCl (Ultram) 50 - 100 mg PO Q6H PRN PRN Reason: Breakthrough Pain Last Admin: 06/14/16 19:29 Dose: 50 mg Discontinued Medications Acetaminophen (Tylenol Extra Strength) 1,000 mg PO Q6H [facility] Acetaminophen/Hydrocodone Bitart ([place] 325-10 Mg) 1 - 2 tab PO Q4H PRN PRN Reason: Pain Last Admin: 06/13/16 06:55 Dose: 1 tab Fentanyl (Sublimaze) Confirm Administered Dose 100 mcg .ROUTE .STK-MED ONE Stop: 06/11/16 13:37 Fentanyl (Sublimaze) Confirm Administered Dose 100 mcg .ROUTE .STK-MED ONE Stop: 06/11/16 13:38 Hydromorphone HCl (Dilaudid) 0.5 mg IM ONETIME ONE Stop: 06/11/16 09:54 Last Admin: 06/11/16 10:20 Dose: 0.5 mg Hydromorphone HCl (Dilaudid) 0.5 mg IVPUSH ONETIME ONE Stop: 06/11/16 11:14 Last Admin: 06/11/16 11:20 Dose: 0.5 mg Sodium Chloride (Normal Saline) 1,000 mls @ 999 mls/hr IV STAT ONE Stop: 06/11/16 10:51 Last Admin: 06/11/16 10:21 Dose: 999 mls/hr Sodium Chloride (Normal Saline) 1,000 mls @ 999 mls/hr IV .Bolus ONE Stop: 06/11/16 11:06 Last Admin: 06/11/16 11:12 Dose: 999 mls/hr Lactated Ringer's (Ringers, Lactated) 1,000 mls @ 125 mls/hr IV ASDIRECTED ROGER Last Admin: 06/14/16 08:00 Dose: 125 mls/hr Cefazolin Sodium/Dextrose 1 gm (/ Premix) 50 mls @ 100 mls/hr IV Q8H ONE Stop: 06/11/16 13:29 Last Admin: 06/11/16 13:35 Dose: Not Given Cefazolin Sodium/Dextrose 1 gm (/ Premix) 50 mls @ 100 mls/hr IV ONETIME ONE Stop: 06/11/16 16:29 Last Admin: 06/11/16 16:33 Dose: Not Given Cefazolin Sodium/Dextrose (Ancef) Confirm Administered Dose 50 mls @ as directed .ROUTE .STK-MED ONE Stop: 06/11/16 15:09 Cefazolin Sodium/Dextrose 1 gm (/ Premix) 50 mls @ 100 mls/hr IV Q8H [facility] Stop: 06/12/16 07:29 Last Admin: 06/12/16 06:02 Dose: 100 mls/hr Midazolam HCl (Versed 1 Mg/Ml) Confirm Administered Dose 2 mg .ROUTE .STK-MED ONE Stop: 06/11/16 13:37 Phenylephrine HCl (Phenylephrine In Ns 100 Mcg/Ml) Confirm Administered Dose 1 mg .ROUTE .STK-MED ONE Stop: 06/11/16 15:01 Phenylephrine HCl (Phenylephrine In Ns 100 Mcg/Ml) Confirm Administered Dose 1 mg .ROUTE .STK-MED ONE Stop: 06/11/16 15:15 Phenylephrine HCl (Frank[place]-Synephrine) Confirm Administered Dose 10 mg .ROUTE .STK- MED ONE Stop: 06/11/16 15:15 Propofol (Diprivan 20 Ml) Confirm Administered Dose 800 mg .ROUTE .STK-MED ONE Stop: 06/11/16 13:36 Rivaroxaban (Xarelto) 10 mg PO DAILY [facility] Sodium Chloride (Saline Flush) 10 ml FLUSH ASDIRECTED PRN PRN Reason: Keep Vein Open Last Admin: 06/11/16 10:21 Dose: 10 ml Sodium Chloride (Saline Flush) 2.5 ml FLUSH ASDIRECTED PRN PRN Reason: Keep Vein Open Last Admin: 06/11/16 10:21 Dose: 2.5 ml Sodium Chloride (Saline Flush) 10 ml FLUSH ASDIRECTED PRN PRN Reason: Keep Vein Open Last Admin: 06/11/16 10:21 Dose: 10 ml - Exam Wound/Incisions: dressing dry and intact General: alert, oriented HEENT: Pupils equal, Pupils reactive Lungs: Normal respiratory effort Cardiovascular: Regular Rate Neurological: no new focal deficit Psy/Mental Status: alert, normal affect, normal mood - Problem List Review Problem List Initiated/Reviewed/Updated: Yes - My Orders Last 24 Hours: Active Orders 24 hr Category Date Time Status Communication Order [RC] ROUTINE Care 06/14/16 22:39 Active Dressing Change [Wound Care] [RC] Q12H Care 06/14/16 16:30 Active Bisacodyl [Dulcolax] Med 06/14/16 08:15 Active 10 mg RECTAL DAILY PRN Docusate Sodium [Colace] Med 06/14/16 09:00 Active 100 mg PO BID Sodium Chloride 0.9% [Saline Flush] Med 06/14/16 12:31 Active 10 ml FLUSH ASDIRECTED PRN Sodium Chloride 0.9% [Saline Flush] Med 06/14/16 12:31 Active 2.5 ml FLUSH ASDIRECTED PRN Convert IV to Saline Lock [OM.PC] Routine Oth 06/14/16 12:31 Ordered Medication Orders Acetaminophen (Tylenol Extra Strength) 1,000 mg PO Q6H PRN PRN Reason: pain Last Admin: 06/14/16 18:36 Dose: 1,000 mg Admin: 06/14/16 09:35 Dose: 1,000 mg Admin: 06/13/16 21:50 Dose: 1,000 mg Admin: 06/13/16 14:41 Dose: 1,000 mg Acetaminophen/Hydrocodone Bitart ([place] 325-5 Mg) 1 - 2 tab PO Q6H PRN PRN Reason: Pain Bisacodyl (Dulcolax) 10 mg RECTAL DAILY PRN PRN Reason: Constipation Diphenhydramine HCl (Benadryl) 25 - 50 mg PO Q6H PRN PRN Reason: Itching Docusate Sodium (Colace) 100 mg PO BID [facility] Last Admin: 06/14/16 20:16 Dose: 100 mg Admin: 06/14/16 09:35 Dose: 100 mg Hydromorphone HCl (Dilaudid) 0.5 - 1 mg IVPUSH Q3H PRN PRN Reason: Pain Last Admin: 06/13/16 09:58 Dose: 1 mg Admin: 06/12/16 07:40 Dose: 1 mg Admin: 06/11/16 13:32 Dose: 1 mg Ketorolac Tromethamine (Toradol) 30 mg IVPUSH Q6H PRN PRN Reason: Pain Last Admin: 06/13/16 16:03 Dose: 30 mg Ondansetron HCl (Zofran) 4 mg IV Q8HR PRN PRN Reason: NAUSEA/VOMITING Last Admin: 06/12/16 08:16 Dose: 4 mg Rivaroxaban (Xarelto) 10 mg PO DAILY [facility] Last Admin: 06/14/16 08:25 Dose: 10 mg Admin: 06/13/16 09:58 Dose: 10 mg Admin: 06/12/16 08:02 Dose: 10 mg Sodium Chloride (Saline Flush) 2.5 ml FLUSH ASDIRECTED PRN PRN Reason: Keep Vein Open Last Admin: 06/11/16 10:21 Dose: 2.5 ml Sodium Chloride (Saline Flush) 10 ml FLUSH ASDIRECTED PRN PRN Reason: Keep Vein Open Sodium Chloride (Saline Flush) 2.5 ml FLUSH ASDIRECTED PRN PRN Reason: Keep Vein Open Tramadol HCl (Ultram) 50 - 100 mg PO Q6H PRN PRN Reason: Breakthrough Pain Last Admin: 06/14/16 19:29 Dose: 50 mg Admin: 06/13/16 16:46 Dose: 50 mg - Assessment Assessment (Free Text/Narrative):: Patient awake in bed this AM Pain is well controlled Hgb 9.9 UO 1400 mL VSS O2 Sat 91%, asymptomatic - Plan Plan (Free Text/Narrative):: Continue pain management Continue physical therapy Encourage patient to be up and moving with forward wheeled walker Encourage diet and PO fluid intake Continue Xarelto 10mg daily for DVT prophylaxis Patient D/C home today
--- NOTE | 2016-06-15 08:31 | PCM.DCSUM1 ---
Discharge Summary - Hospital Course Brief History: This 60 year old female with pmh of 29 years of cigarette use presented to the ED 06/11/2016 via EMS with complaints of R hip pain after a fall this morning. She reports she was walking outside to smoke, she slipped on ice landing on her butt, felt pain to R hip instantly and was unable to get up. She was able to call for help and EMS was called. She denies hitting her head or losing consciousness. She denies recent URI, no fevers, cough. No chest pain or palpitations and no SOB. She denies any abdominal pain, urinary symptoms or black or bloody stools. She has otherwise been in good health. She smokes approximately 1 ppd, denies alcohol use. In the ED labwork was obtained, WBC slightly elevated 13,000, hgb 13.5, BMP WNL. EKG SR 70s, no ST segment changes. R hip xray revealed comminuted and angulated right intertrochanteric fracture. CXR negative for acute cardiopulmonary process. Dr. Staley, Orthopedics consulted in ED recommended admission. - Discharge Data Discharge Date: 06/15/16 Discharge Disposition: Home, [facility] 06 Condition: Good - Discharge Diagnosis/Problem(s) (1) Intertrochanteric fracture of right femur SNOMED Code(s): 134947733 ICD Code: S72.141A - DISPLACED INTERTROCHANTERIC FRACTURE OF RIGHT FEMUR, INIT Status: Acute Current Visit: Yes Qualifiers: Encounter type: initial encounter Fracture type: closed Qualified Code(s) : S72.141A - Displaced intertrochanteric fracture of right femur, initial encounter for closed fracture (2) Smoker SNOMED Code(s): 64796423 ICD Code: F17.200 - NICOTINE DEPENDENCE, UNSPECIFIED, UNCOMPLICATED Status : Chronic Current Visit: Yes - Patient Summary/Data Operative Procedure(s) Performed: closed reduction of right hip with insertion of cephalomedullary nail Consults: Consultations 06/11/16 12:57 Consult to Physician [CONS] Routine 06/11/16 16:43 PT Evaluation and Treatment [CONS] Routine - Patient Instructions Diet: Regular Diet as Tolerated Activity: As Tolerated (with walker) Driving: Do Not Drive Showering/Bathing: No Tub Bathing/Swimming Notify Provider of: Fever, Increased Pain, Swelling and Redness, Drainage, Nausea and/or Vomiting - Discharge Plan Prescriptions/Med Rec: Acetaminophen/HYDROcodone [Arabi 325-5 MG] 1 - 2 tab PO Q6H PRN #80 tablet PRN Reason: Pain Docusate Sodium [Colace] 100 mg PO BID #60 cap Polyethylene Glycol 3350 [MiraLAX] 17 gm PO DAILY PRN #1 packet PRN Reason: Constipation Rivaroxaban [Xarelto] 10 mg PO DAILY #40 tablet traMADol [Ultram] 50 - 100 mg PO Q6H PRN #60 tablet PRN Reason: Pain Home Medications: Home Meds Acetaminophen/HYDROcodone [Arabi 325-5 MG] 1 - 2 tab PO Q6H PRN #80 tablet 06/15 [Rx] Bisacodyl [Dulcolax] 10 mg RECTAL DAILY PRN #0 supp 06/15/16 [Rx] Docusate Sodium [Colace] 100 mg PO BID #60 cap 06/15/16 [Rx] Polyethylene Glycol 3350 [MiraLAX] 17 gm PO DAILY PRN #1 packet 06/15/16 [Rx] Rivaroxaban [Xarelto] 10 mg PO DAILY #40 tablet 06/15/16 [Rx] traMADol [Ultram] 50 - 100 mg PO Q6H PRN #60 tablet 06/15/16 [Rx] Patient Handouts: Docusate Sodium; Senna tablets or capsules, Acetaminophen; Hydrocodone tablets or capsules, Rivaroxaban oral tablets, Tramadol tablets, Hip Fracture, Polyethylene Glycol powder Referrals: Ender Staley MD [Physician] - 06/22/16 10:[address] Bermeo PA [Physician Executive Administrative Assistant] - 06/22/16 1:30 pm - Discharge Summary/Plan Comment DC Time >30 min.: No Discharge Summary/Plan Comment: Discharge Diagnoses: R Hip fracture Tobacco abuse Sheila was admitted and taken to the OR per Dr. Staley, Orthopedicsm where she performed closed reduction of R hip with insertion of a cephalomedullary nail, please see operative notes. Post-operatively she has done well, VSS, no concerns of SOB or chest pain. She has been up ambulating with FWW. Today she is very eager to be discharged home. She is to continue pain management per Ortho and we recommend VTE prophylaxis. She will be discharged home today with Home Health due to recent hospitalization for R hip fracture and need for post operative care including wound care as well as PT to assisted with strengthening and ambulation and OT to complete home safety assessment and ADLs assessment. She is homebound due to the taxing effort to leave her residence due to surgical correction of R hip fracture, pain associated with walking and the need for an assistive device and person to assist her in leaving the residence. Plan of care to be overseen by Dr. Yeny Staley. - General Info Date of Service: 06/15/16 Admission Dx/Problem (Free Text: Admission Diagnosis/Problem Admission Diagnosis/Problem Fracture of neck of femur, hip Subjective Update: Feeling well this morning, very eager to be discharged home. Denies any chest pain or SOB. No palpitations or N/V. Pain is well controlled. Functional Status: Reports: pain controlled, tolerating diet, ambulating, urinating - Review of Systems General: Reports: No Symptoms. Denies: Fever HEENT: Reports: no symptoms. Denies: sore throat, visual changes Pulmonary: Reports: no symptoms. Denies: shortness of breath, cough, sputum Cardiovascular: Reports: No Symptoms. Denies: Chest Pain, Palpitations, Edema Gastrointestinal: Reports: Constipation (has not had BM since surgery, refusing medications to assist with this), Flatus. Denies: Abdominal pain, Nausea, Vomiting Genitourinary: Reports: no symptoms. Denies: dysuria, frequency, burning, pain - Patient Data Vitals - Most Recent: Last Vital Signs Temp 98.2 F 06/15/16 04:00 Pulse 70 06/14/16 16:00 Resp 17 06/15/16 04:00 BP 135/65 06/15/16 04:00 Pulse Ox 90 L 06/15/16 04:00 Weight - Most Recent: 57.5 kg I&O - Last 24 hours: Intake & Output 06/14/16 06/15/16 06/15/16 22:59 06:59 14:59 Intake Total 800 320 Output Total 900 500 Balance -100 -180 Lab Results - Last 24 hrs: Laboratory Results - last 24 hr 06/15/16 Range/Units 04:23 Hgb 9.9 L (12.0-16.0) g/dL Hct 29.3 L (36.0-46.0) % Med Orders - Current: Current Medications Acetaminophen (Tylenol Extra Strength) 1,000 mg PO Q6H PRN PRN Reason: pain Last Admin: 06/14/16 18:36 Dose: 1,000 mg Acetaminophen/Hydrocodone Bitart (Arabi 325-5 Mg) 1 - 2 tab PO Q6H PRN PRN Reason: Pain Bisacodyl (Dulcolax) 10 mg RECTAL DAILY PRN PRN Reason: Constipation Diphenhydramine HCl (Benadryl) 25 - 50 mg PO Q6H PRN PRN Reason: Itching Docusate Sodium (Colace) 100 mg PO BID [facility] Last Admin: 06/14/16 20:16 Dose: 100 mg Hydromorphone HCl (Dilaudid) 0.5 - 1 mg IVPUSH Q3H PRN PRN Reason: Pain Last Admin: 06/13/16 09:58 Dose: 1 mg Ketorolac Tromethamine (Toradol) 30 mg IVPUSH Q6H PRN PRN Reason: Pain Last Admin: 06/13/16 16:03 Dose: 30 mg Ondansetron HCl (Zofran) 4 mg IV Q8HR PRN PRN Reason: NAUSEA/VOMITING Last Admin: 06/12/16 08:16 Dose: 4 mg Rivaroxaban (Xarelto) 10 mg PO DAILY [facility] Last Admin: 06/14/16 08:25 Dose: 10 mg Sodium Chloride (Saline Flush) 2.5 ml FLUSH ASDIRECTED PRN PRN Reason: Keep Vein Open Last Admin: 06/11/16 10:21 Dose: 2.5 ml Sodium Chloride (Saline Flush) 10 ml FLUSH ASDIRECTED PRN PRN Reason: Keep Vein Open Sodium Chloride (Saline Flush) 2.5 ml FLUSH ASDIRECTED PRN PRN Reason: Keep Vein Open Tramadol HCl (Ultram) 50 - 100 mg PO Q6H PRN PRN Reason: Breakthrough Pain Last Admin: 06/14/16 19:29 Dose: 50 mg Discontinued Medications Acetaminophen (Tylenol Extra Strength) 1,000 mg PO Q6H [facility] Acetaminophen/Hydrocodone Bitart (Arabi 325-10 Mg) 1 - 2 tab PO Q4H PRN PRN Reason: Pain Last Admin: 06/13/16 06:55 Dose: 1 tab Fentanyl (Sublimaze) Confirm Administered Dose 100 mcg .ROUTE .STK-MED ONE Stop: 06/11/16 13:37 Fentanyl (Sublimaze) Confirm Administered Dose 100 mcg .ROUTE .STK-MED ONE Stop: 06/11/16 13:38 Hydromorphone HCl (Dilaudid) 0.5 mg IM ONETIME ONE Stop: 06/11/16 09:54 Last Admin: 06/11/16 10:20 Dose: 0.5 mg Hydromorphone HCl (Dilaudid) 0.5 mg IVPUSH ONETIME ONE Stop: 06/11/16 11:14 Last Admin: 06/11/16 11:20 Dose: 0.5 mg Sodium Chloride (Normal Saline) 1,000 mls @ 999 mls/hr IV STAT ONE Stop: 06/11/16 10:51 Last Admin: 06/11/16 10:21 Dose: 999 mls/hr Sodium Chloride (Normal Saline) 1,000 mls @ 999 mls/hr IV .Bolus ONE Stop: 06/11/16 11:06 Last Admin: 06/11/16 11:12 Dose: 999 mls/hr Lactated Ringer's (Ringers, Lactated) 1,000 mls @ 125 mls/hr IV ASDIRECTED [facility] Last Admin: 06/14/16 08:00 Dose: 125 mls/hr Cefazolin Sodium/Dextrose 1 gm (/ Premix) 50 mls @ 100 mls/hr IV Q8H ONE Stop: 06/11/16 13:29 Last Admin: 06/11/16 13:35 Dose: Not Given Cefazolin Sodium/Dextrose 1 gm (/ Premix) 50 mls @ 100 mls/hr IV ONETIME ONE Stop: 06/11/16 16:29 Last Admin: 06/11/16 16:33 Dose: Not Given Cefazolin Sodium/Dextrose (Ancef) Confirm Administered Dose 50 mls @ as directed .ROUTE .STK-MED ONE Stop: 06/11/16 15:09 Cefazolin Sodium/Dextrose 1 gm (/ Premix) 50 mls @ 100 mls/hr IV Q8H [facility] Stop: 06/12/16 07:29 Last Admin: 06/12/16 06:02 Dose: 100 mls/hr Midazolam HCl (Versed 1 Mg/Ml) Confirm Administered Dose 2 mg .ROUTE .STK-MED ONE Stop: 06/11/16 13:37 Phenylephrine HCl (Phenylephrine In Ns 100 Mcg/Ml) Confirm Administered Dose 1 mg .ROUTE .STK-MED ONE Stop: 06/11/16 15:01 Phenylephrine HCl (Phenylephrine In Ns 100 Mcg/Ml) Confirm Administered Dose 1 mg .ROUTE .STK-MED ONE Stop: 06/11/16 15:15 Phenylephrine HCl (Frankie-Synephrine) Confirm Administered Dose 10 mg .ROUTE .STK- MED ONE Stop: 06/11/16 15:15 Propofol (Diprivan 20 Ml) Confirm Administered Dose 800 mg .ROUTE .STK-MED ONE Stop: 06/11/16 13:36 Rivaroxaban (Xarelto) 10 mg PO DAILY [facility]OGER Sodium Chloride (Saline Flush) 10 ml FLUSH ASDIRECTED PRN PRN Reason: Keep Vein Open Last Admin: 06/11/16 10:21 Dose: 10 ml Sodium Chloride (Saline Flush) 2.5 ml FLUSH ASDIRECTED PRN PRN Reason: Keep Vein Open Last Admin: 06/11/16 10:21 Dose: 2.5 ml Sodium Chloride (Saline Flush) 10 ml FLUSH ASDIRECTED PRN PRN Reason: Keep Vein Open Last Admin: 06/11/16 10:21 Dose: 10 ml - Exam Quality Assessment: Reports: DVT prophylaxis General: Reports: alert, oriented Neck: Reports: supple Lungs: Reports: Clear to auscultation, Normal respiratory effort Cardiovascular: Reports: Regular Rate, Regular Rhythm, No Murmurs Abdomen: Reports: bowel sounds present, soft, no tenderness, no distension Extremities: Reports: edema (to R hip and thigh) Wound/Incisions: Reports: dressing dry and intact. Denies: erythema Psy/Mental Status: Reports: alert, normal affect, normal mood *Q Meaningful Use (DIS) - VTE *Q VTE Criteria *Q: - Stroke *Q Stroke Criteria *Q: - AMI *Q AMI Criteria *Q:
[2016-06-15] MEDS: Rivaroxaban 10 MG Tab PO SCH (09:13)
[2016-06-15] MEDS: Docusate Sodium 100 MG Cap PO SCH (09:14)
[2016-06-15] MEDS: Acetaminophen 500 MG Tab PO PRN (09:25)
[2016-06-15] MEDS: traMADol 50 MG Tab PO PRN (10:27)
[2016-06-15 12:17] VITALS: BP 134/70
--- NOTE | 2016-06-15 12:44 | PCM.SN ---
- Free Text/Narrative Note: Patient seen and examined. Agree with Main PAC note. Patient improving with physical therapy. Her pain has been well-controlled. Dressing on the right thigh was changed earlier. NVI. Will plan to discharge home later today. She will remain on Xarelto for DVT prophylaxis. She does have a followup appointment in approximately 2 weeks for reevaluation and staple removal. She is advised to return to clinic or call she has questions or concerns before that time. Patient agrees with the plan.
--- NOTE | 2016-06-16 11:03 | OR ---
SURGEON: Katelynn Staley MD DATE OF PROCEDURE: 06/11/2016 PREOPERATIVE DIAGNOSIS: Right intertrochanteric hip fracture, unstable. POSTOPERATIVE DIAGNOSIS: Right intertrochanteric hip fracture, unstable. PROCEDURE: Closed reduction of the right hip with insertion of cephalomedullary nail. ACETYLENE TORCH SOLDERER: 1. Sharda Garrison MD, PGY-2. 2. Ruby Quach PA-C. ANESTHESIA: Spinal with sedation. ESTIMATED BLOOD LOSS: 100 mL. TOURNIQUET TIME: 0 minutes. COMPLICATIONS: None. DVT PROPHYLAXIS: PAS boot to the nonoperative leg. IMPLANTS USED: Isabella short gamma nail with 90 mm lag screw and 5.0 mm interlocking screw distally. BRIEF HISTORY: Sheila is a 60-year-old female, who sustained a fall, injuring her right hip. X-ray showed a displaced intertrochanteric hip fracture. She was seen preoperatively by the hospitalist and was cleared for surgery. Due to the displacement of the fracture, I did recommend surgical treatment. The risks and goals of procedure were discussed with the patient and documented preoperatively. She agreed to proceed. DESCRIPTION OF PROCEDURE: The patient was properly identified and brought to the operating room. Spinal anesthesia was administered on the OR cart. She was then placed onto the fracture table. A well-padded perineal post was placed between her legs. Traction was applied to the right lower extremity. The left lower extremity was placed with the hip and knee flexed to approximately 90 degrees with abduction. The right lower extremity was brought into a slightly internally rotated and abducted position. C-arm was used to confirm that the fracture was reduced. The right lower extremity was then prepped in standard fashion using ChloraPrep solution. It was then sterilely draped. A time-out was performed to ensure correct site and procedure. Preoperative antibiotics were given. The surgical site had been marked preoperatively. An incision was made just superior and posterior to the tip of the greater trochanter. The subcutaneous tissues were incised down to the level of the greater trochanter. A guide pin was placed at the tip of the trochanter. C-arm imaging was used to confirmed correct placement of the pin. It was then passed into the proximal femur. The entry reamer was then placed over this guide pin and the proximal portion of the femur was reamed. We elected to proceed with the short gamma nail. The short gamma nail was inserted. It did meet some resistance in the diaphysis of the femur. I did have difficulty putting this down. The gamma nail was then removed and a long guide cleveland was placed. Sequential reamers were then used to ream the diaphyseal portion of the femur to a diameter of 12.5 mm. The guide pin was then removed and the cephalomedullary nail was again placed. This time it passed easily into the diaphysis. It was then placed into position. The lag screw trocar was then placed. An incision was made in the skin and subcutaneous tissues and fascia were dissected. The cannula was advanced. A guide pin was then placed. This was placed into the center of the femoral neck in both the AP and lateral planes. Once we had adequate position of the guide pin, it was measured. It was felt that a 90 mm lag screw would be appropriate. It was then over-reamed with the triple reamer. The 90 mm lag screw was then placed without difficulty. We did have good purchase in the subchondral bone of the femoral head. This was then locked into position with the small set screw. The trocars for the distal interlocking screw was then placed. Again, a small incision was made through the skin, subcutaneous tissues, and fascia and the trocar was advanced to the bone. This was then drilled. A 5.0 mm screw of appropriate length was then placed. Final C-arm images confirmed good reduction of the fracture with adequate placement of the hardware. Wounds were copiously irrigated with saline solution. The subcutaneous tissues were closed with 2-0 Vicryl and the skin was closed with dhaval. Aquacel dressings were then placed. She was taken from the fracture table and placed on the operating room cart. She was brought to recovery room in stable condition. All needle and sponge counts were correct. LISA / NOREEN /[id number]
--- NOTE | 2016-06-16 13:12 | PCM.SN ---
- Free Text/Narrative Note: Discharge summary Dressing was changed prior to discharge See discharge plan for complete list of discharge medications and instructions Dictation #: [id number]
--- NOTE | 2016-06-16 23:28 | DISCH ---
DATE OF ADMISSION: 06/11/2016 DATE OF DISCHARGE: 06/15/2016 PRIMARY CARE PHYSICIAN: Val PCP ADMITTING DIAGNOSIS: 1. Right intratrochanteric hip fracture, unstable. OTHER MEDICAL DIAGNOSIS: 1.Chronic obstructive pulmonary disease. DISCHARGE DIAGNOSES: 1. Status post closed reduction of the right hip with insertion of cephalomedullary nail 2. Acute posthemorrhagic anemia 3. COPD BRIEF HISTORY: The patient is a 60-year-old female, who sustained a fall, injuring her right hip. X-ray showed a displaced intertrochanteric hip fracture. She was seen preoperatively by the hospitalist and was cleared for surgery. Due to displacement of the fracture, surgical intervention was recommended at that time. OPERATION: Closed reduction of the right hip with insertion of cephalomedullary nail HOSPITAL COURSE: Pain was controlled via IV and p.o. pain medication. The patient received 2 doses of Ancef postoperatively for 24 hours of antibiotic coverage. The patient was followed by the hospitalist and Physical Therapy during her hospital stay. Upon discharge, vital signs were stable. She was afebrile. Hemoglobin on POD # 2 was 8.2. Patient received two units of PRBC. Hemoglobin on day of discharge was 9.9. Xarelto 10 mg daily was started on postoperative day 1 for DVT prophylaxis. Pain is currently controlled with oral pain medications only. She is tolerating oral intake. She is ambulating with crutches. She feels comfortable to discharge home today. DISCHARGE MEDICATIONS: 1. Steinauer 5/325 mg 2. Colace 100 mg 3.MiraLAX 4. Xarelto 10 mg 5. Ultram 50 mg 6. Nicotine patch. DISCHARGE INSTRUCTIONS: The patient will follow up in the clinic on June 22, 2016. This appointment has been made by the patient. For complete medical reconciliation and discharge instructions, please refer to the patient's EHR. If the patient has further questions or concerns prior to followup, she may call the clinic. KOURTNEY SORTO /[id number] MTDJenifer
== END 2016-06-15 13:00 | disposition home health service (06) | DRG 482 ==
LOC: MW.ED 09:38 → MW.MS 11:32
PROVIDERS: ADMIT Internal Medicine; ATTEND Internal Medicine
PROC: 0QS604Z Reposition Right Upper Femur with Internal Fixation Device, Open Approach (ICD-10-PCS; principal; 2016-06-11)
DX: S72.141A Displaced intertrochanteric fracture of right femur, initial encounter for closed fracture (principal); W00.0XXA Fall on same level due to ice and snow, initial encounter; Y93.89 Activity, other specified; F17.200 Nicotine dependence, unspecified, uncomplicated
CPT/HCPCS: 01220; 36415; 36430; 71010; 71010-26; 73502-26-RT; 73502-RT; 76000; 76000-26; 80048; 80053; 85014; 85018; 85025; 85610; 85730; 86850; 86900; 86901; 86920; 86921; 86922; 93005; 97110-GP; 97161-GP; 97530-GP; 99285; 99285-25; A9270-GY; C1713; C1769; J0690; J1170; J1885; J2250; J2370; J2405; J2704; J3010; J7040; J7120; P9016

== ENCOUNTER → 2016-06-22 | Outpatient (CLI) | payer MEDICAID, OTHER ==
--- NOTE | 2016-06-22 16:37 | CR ---
EXAMINATION: Pelvis and right hip HISTORY: Postprocedural state COMPARISON: 06/11/2016 TECHNIQUE: AP pelvis and 2 views of the right hip FINDINGS: There is stable intramedullary fixation with an anterior locking femoral neck component tr aversing an intertrochanteric fracture. Position and alignment appear unchanged. Remaining osseous s tructures appear intact. Bone mineralization appears normal to mildly osteopenic. IMPRESSION: Stable hardware fixation of a right intertrochanteric fracture.
== END ==
LOC: MW.CHORTHO 07:44
PROVIDERS: ATTEND Physician Assistant
DX: Z09 Encounter for follow-up examination after completed treatment for conditions other than malignant neoplasm (principal); Z98.890 Other specified postprocedural states; S72.141A Displaced intertrochanteric fracture of right femur, initial encounter for closed fracture; Z79.01 Long term (current) use of anticoagulants
CPT/HCPCS: 36415; 73502-26-RT; 73502-RT; 85025

== ENCOUNTER → 2016-07-20 | Outpatient (CLI) | payer MEDICAID, OTHER ==
--- NOTE | 2016-07-22 13:03 | CR ---
EXAM DATE: 07/20/16 PATIENT'S AGE: 60 Patient: HERSON CARNES Facility: [place], [place] Site . Site : 1955 Study: XRay Knee Right [id number] 2:44:27 PM Ordering Physician: Luís Pace Final Report: HISTORY: Pain. Findings: Standing AP and PA views of both knees were obtained with lateral and sunrise views of the right knee. There is minimal decrease in the ileal joint spaces within both knees. Right patellofemoral joint space is preserved. Small suprapatellar joint fluid is present. No fracture or dislocation is seen. Impression: 1. Mild decrease in the medial joint spaces of both knees. 2. Small amount of right suprapatellar joint fluid without acute bony abnormality. Dictated by Malinda Vargas MD @ Jul 21 2016 8:40PM (Electronic Signature) Report Signed by Proxy. ASHLY
--- NOTE | 2016-07-22 14:08 | CR ---
EXAM DATE: 07/20/16 PATIENT'S AGE: 60 Patient: HERSON CARNES Facility: [place], [place] Site . Site : 1955 Study: XRay Hip Right [id number]/25/2017 2:57:46 PM Ordering Physician: Luís Pace Final Report: HISTORY: Pain. Findings: AP pelvis and frogleg view of the right hip are compared with 22 June 2016. An interlocking pin and IM cleveland fixes the right intertrochanteric femoral neck fracture. Hardware is intact. Alignment is unchanged. No new fractures are seen. Bones are mildly osteopenic. Impression: Status post ORIF of right intertrochanteric hip fracture in anatomic alignment. Dictated by Malinda Vargas MD @ Jul 21 2016 10:11PM (Electronic Signature) Report Signed by Proxy. ASHLY
== END ==
LOC: MW.CHORTHO 07:48
PROVIDERS: ATTEND Orthopaedic Surgery
DX: S72.141A Displaced intertrochanteric fracture of right femur, initial encounter for closed fracture (principal); M25.561 Pain in right knee; Z96.7 Presence of other bone and tendon implants; M25.862 Other specified joint disorders, left knee; M25.861 Other specified joint disorders, right knee; M25.461 Effusion, right knee
CPT/HCPCS: 73502-26-RT; 73502-RT; 73564-26-RT; 73564-RT